=== PATIENT | male | born 1960 | race Caucasian/White ===

== ENCOUNTER 2016-11-07 09:25 | Day surgery (SDC) | payer MEDICAID, OTHER ==
[~2016-11-07 09:25] MED LIST: Lactated Ringers 1,000 ML IV SCH; Lidocaine 1%/Sod Bicarbonate in NS 8.4% 1 ML Syringe IV PRN; Sodium Chloride 0.9% 10 ML Syringe FLUSH PRN
[2016-11-07] MEDS ORDERED: Bupivacaine 0.25% 30 ML SDV ONE (10:00)
[2016-11-07] MEDS ORDERED: Lidocaine 1% 50 ML MDV ONE (10:00)
--- NOTE | 2016-11-07 10:32 | PCM.PREANE ---
Preanesthetic Assessment - Anesthesia/Transfusion/Family Hx Anesthesia History: Prior Anesthesia Without Reaction Type of Anesthesia Reaction: Unknown Family History of Anesthesia Reaction: No Transfusion History: Prior Transfusion Without Reaction (with his broken leg) Type of Transfusion Reactions: Reports: Unknown Intubation History: Unknown - Review of Systems General: No Symptoms Pulmonary: Wheezing Cardiovascular: No Symptoms Gastrointestinal: No symptoms Neurological: No Symptoms Other: Reports: Thyroid Problems (hypothyroid) - Physical Assessment NPO Status Date: 11/07/16 NPO Status Time: 01:00 O2 Sat by Pulse Oximetry: 97 Respiratory Rate: 16 Vital Signs: Last Vital Signs Temp 37.1 C 11/07/16 09:30 Pulse 84 11/07/16 09:30 Resp 16 11/07/16 09:30 BP 135/93 H 11/07/16 09:30 Pulse Ox 97 11/07/16 09:30 Height: 1.65 m Weight: 72.575 kg ASA Class: 2 Mental Status: Alert & Oriented x3 Airway Class: Mallampati = 1 Dentition: Reports: Broken Tooth/Teeth (very poor dentition, most teeth are ground down to nubs including front top teeth ) Thyro-Mental Finger Breadths: 3 Mouth Opening Finger Breadths: 3 ROM/Head Extension: Full Lungs: Normal respiratory effort, Wheezing (pt states he is always a little wheezy) Cardiovascular: Regular Rate, Regular Rhythm - Lab Values: Laboratory Last Values Uric Acid 6.0 mg/dL (3.5-7.2) 11/04/16 07:42 C-Reactive Protein 13.6 mg/dL (<1.0) H* 11/04/16 07:42 MRSA (PCR) Negative 11/05/16 08:52 - Imaging/EKG Impressions: CXR - mild emphysema - Allergies Allergies/Adverse Reactions: Allergies Allergy/AdvReac Type Severity Reaction Status Date / Time No Known Allergies Allergy Verified 11/06/16 14:56 - Blood Blood Available: No Product(s) Available: None - Anesthesia Plan Pre-Op Medication Ordered: None - Acknowledgements Anesthesia Type Planned: MAC Pt an Appropriate Candidate for the Planned Anesthesia: Yes Alternatives and Risks of Anesthesia Discussed w Pt/Guardian: Yes Pt/Guardian Understands and Agrees with Anesthesia Plan: Yes PreAnesthesia Questionnaire HEENT History: Reports: Impaired vision, Other (see below) Other HEENT History: glasses Cardiovascular History: Reports: None Respiratory History: Reports: None Gastrointestinal History: Reports: None Musculoskeletal History: Reports: Other (see below) Other Musculoskeletal History: ac joint bone spurs, L glenohumeral arthritis, R wrist pain with swelling, L shoulder rotator cuff impingement, bilateral carpal syndrome, knee surgery Neurological History: Reports: None Psychiatric History: Reports: None Endocrine/Metabolic History: Reports: Hypothyroidism Hematologic History: Reports: None Immunologic History: Reports: None Oncologic (Cancer) History: Reports: None Dermatologic History: Reports: None - Past Surgical History Head Surgeries/Procedures: Reports: None Other Female Surgeries/Procedures: prostate surgery Male Surgical History: Reports: Other (see below) - SUBSTANCE USE Smoking Status *Q: Current Every Day Smoker (1ppd for 40 years) Tobacco Use Within Last Twelve Months: Cigarettes Second Hand Smoke Exposure: No Recreational Drug Use History: No - HOME MEDS Home Medications: Home Meds Acetaminophen [Tylenol] 650 mg PO Q4H PRN 11/06/16 [History] Hydrocodone/Acetaminophen [[place] 5-325 Tablet] 1 - 2 each PO Q6H PRN #20 tablet 11/07/16 [Rx] - CURRENT (IN HOUSE) MEDS Current Meds: Current Medications Lactated Ringer's (Ringers, Lactated) 1,000 mls @ 125 mls/hr IV ASDIRECTED MONIKA Stop: 11/07/16 23:00 Last Admin: 11/07/16 09:40 Dose: 125 mls/hr Lidocaine/Sodium Bicarbonate (Buffered Lidocaine 1% In Ns 8.4%) 0.25 ml IV ONETIME PRN PRN Reason: Prior to IV Start Stop: 11/07/16 18:00 Last Admin: 11/07/16 09:40 Dose: 0.25 ml Sodium Chloride (Saline Flush) 10 ml FLUSH ASDIRECTED PRN PRN Reason: Keep Vein Open Stop: 11/07/16 18:00 Discontinued Medications Bupivacaine HCl (Marcaine 0.25%) Confirm Administered Dose 30 ml .ROUTE .STK- MED ONE Stop: 11/07/16 10:01 Lidocaine HCl (Xylocaine 1%) Confirm Administered Dose 50 ml .ROUTE .STK-MED ONE Stop: 11/07/16 10:01
[2016-11-07] MEDS ORDERED: Midazolam 1 MG/ML 2 ML SDV ONE (10:49)
[2016-11-07] MEDS ORDERED: fentaNYL 100 MCG/2 ML SDV ONE (10:49)
[2016-11-07] MEDS ORDERED: Propofol 200 MG/20 ML SDV ONE (10:49)
[2016-11-07] MEDS ORDERED: Lidocaine 1% 4 ML ONE (10:52)
[2016-11-07] MEDS ORDERED: ceFAZolin 1 GM Vial ONE (10:52)
[2016-11-07 12:03] VITALS: BP 104/69
--- NOTE | 2016-11-07 12:03 | PCM48HPAN ---
Post Anesthesia Note - EVALUATION WITHIN 48HRS OF ANESTHETIC Vital Signs in Normal Range: Yes Patient Participated in Evaluation: Yes Respiratory Function Stable: Yes Airway Patent: Yes Cardiovascular Function Stable: Yes Hydration Status Stable: Yes Pain Control Satisfactory: Yes Nausea and Vomiting Control Satisfactory: Yes Mental Status Recovered: Yes
--- NOTE | 2016-11-12 11:17 | PCM.OPNOTE ---
- General Post-Op/Procedure Note Date of Surgery/Procedure: 11/07/16 Operative Procedure(s): left hand carpal tunnel release Pre Op Diagnosis: left median nerve compression neuropathy Post-Op Diagnosis: Same Anesthesia Technique: Regional block (zack) Primary Surgeon: Duke Escobedo Anesthesia Provider: Lei Chun Laborer Livestock: Renu Arias in mLs: 5 Complications: None Condition: Good
--- NOTE | 2016-11-12 11:42 | OR ---
DATE OF OPERATION: 11/07/2016 SURGEON: Duke Escobedo MD OPERATION PERFORMED: Left hand carpal tunnel release. PREOPERATIVE DIAGNOSIS: Left median nerve compression neuropathy. POSTOPERATIVE DIAGNOSIS: Left median nerve compression neuropathy. ANESTHESIA: Regional Loco block ANESTHESIA PROVIDER: Lei Chun CRNA LIVE IN HOUSEKEEPER: Renu Arias PA-C ESTIMATED BLOOD LOSS: 5 mL. COMPLICATIONS: None. CONDITION: Stable. DESCRIPTION OF PROCEDURE: The patient was identified in the preop holding area, proper site was marked and identified by the surgeon. The patient was taken back to the operating theater, where after adequate anesthesia the patient's left upper extremity was sterilely prepped and draped in the usual sterile fashion. OR time-out was performed. The patient received 2 g IV Ancef. At this time, incision was made using Carter cardinal line and ulnar border of the 4th digit. This was taken down to the palmar cutaneous fascia. Palmar cutaneous fascia was then incised with a [place] blade. Transverse carpal ligament was identified and a small rent was made in the transverse carpal ligament. A [place] elevator was then placed distally and the transverse carpal ligament was resected down to the palmar arch making sure to stop just short. It was found to be adequately released distally. At this time, attention was turned proximally with the use of tenotomy scissors to forearm fascia and the transverse carpal ligament were resected making sure to keep the tips ulnar to protect the palmar cutaneous branch of the median nerve. It was found to be adequately released both proximally and distally. Adequate saline was irrigated through the wound. A 4-0 nylon was used for closure of the skin. The patient was placed in a sterile soft tissue dressing and tolerated the procedure well. MMODAL /[id number]
== END 2016-11-07 12:32 | disposition home or self-care (01) ==
LOC: JD.SDS 09:25
PROVIDERS: ATTEND Orthopaedic Surgery
PROC: 01N50ZZ Release Median Nerve, Open Approach (ICD-10-PCS; principal; 2016-11-07)
DX: G56.02 Carpal tunnel syndrome, left upper limb (principal); F17.210 Nicotine dependence, cigarettes, uncomplicated; Z98.890 Other specified postprocedural states
CPT/HCPCS: 36415; 64721; 84550; 86140; 87641; J0690; J2250; J3010; J7120; 01810; J2704; J3490

== ENCOUNTER 2016-12-26 06:29 | Day surgery (SDC) | payer MEDICAID ==
[~2016-12-26 06:29] MED LIST changes: -Lidocaine 1%/Sod Bicarbonate in NS 8.4% 1 ML Syringe IV PRN; +Lidocaine 1%/Sod Bicarbonate in NS 8.4% 1 ML Syringe PRN
[2016-12-26] MEDS ORDERED: Lidocaine 1% 30 ML SDV ONE (06:41)
[2016-12-26] MEDS ORDERED: Bupivacaine 0.25% 30 ML SDV ONE (06:41)
--- NOTE | 2016-12-26 06:52 | PCM.PREANE ---
Preanesthetic Assessment - Anesthesia/Transfusion/Family Hx Anesthesia History: Prior Anesthesia Without Reaction Family History of Anesthesia Reaction: No Transfusion History: Prior Transfusion Without Reaction (with his broken leg) Type of Transfusion Reactions: Reports: Unknown Intubation History: Unknown - Review of Systems General: No Symptoms Pulmonary: No Symptoms Cardiovascular: No Symptoms Gastrointestinal: No symptoms Neurological: No Symptoms Other: Reports: None - Physical Assessment NPO Status Date: 12/25/16 NPO Status Time: 00:00 Pulse: 79 O2 Sat by Pulse Oximetry: 98 Respiratory Rate: 16 Blood Pressure: 140/89 Temperature: 36.1 C Height: 1.65 m Weight: 72.575 kg ASA Class: 2 Mental Status: Alert & Oriented x3 Dentition: Reports: Normal Dentition, Missing Tooth/Teeth Thyro-Mental Finger Breadths: 3 Mouth Opening Finger Breadths: 3 ROM/Head Extension: Full Lungs: Clear to auscultation, Normal respiratory effort, Decreased breath sounds Cardiovascular: Regular Rate, Regular Rhythm, No Murmurs - Lab Values: Laboratory Last Values MRSA (PCR) Negative 12/17/16 15:43 - Allergies Allergies/Adverse Reactions: Allergies Allergy/AdvReac Type Severity Reaction Status Date / Time No Known Allergies Allergy Verified 12/25/16 15:07 - Blood Blood Available: No Product(s) Available: None - Anesthesia Plan Pre-Op Medication Ordered: None - Acknowledgements Anesthesia Type Planned: MAC Pt an Appropriate Candidate for the Planned Anesthesia: Yes Alternatives and Risks of Anesthesia Discussed w Pt/Guardian: Yes Pt/Guardian Understands and Agrees with Anesthesia Plan: Yes PreAnesthesia Questionnaire HEENT History: Reports: Impaired Vision, Other (See Below) Other HEENT History: glasses Cardiovascular History: Reports: None Respiratory History: Reports: None, Other (See Below) Other Respiratory History: emphysema Gastrointestinal History: Reports: None NEWSPAPER EDITOR MANAGING History: Reports: None Musculoskeletal History: Reports: Other (See Below) Other Musculoskeletal History: ac joint bone spurs, L glenohumeral arthritis, R wrist pain with swelling, L shoulder rotator cuff impingement, bilateral carpal syndrome, knee surgery Neurological History: Reports: None Psychiatric History: Reports: None Endocrine/Metabolic History: Reports: Hypothyroidism Hematologic History: Reports: None, Other (See Below) Other Hematologic History: increased white blood cells, thrombocytosis Immunologic History: Reports: None Oncologic (Cancer) History: Reports: None Dermatologic History: Reports: None - Past Surgical History Head Surgeries/Procedures: Reports: None GI Surgical History: Reports: Other (See Below) Other GI Surgeries/Procedures: prostate surgery Other Female Surgeries/Procedures: prostate surgery Male Surgical History: Reports: Other (See Below) Musculoskeletal Surgical History: Reports: Other (See Below) Other Musculoskeletal Surgeries/Procedures:: ac joint bone spur, L glenohumeral arthritis, R wrist pain and swelling, Rotator cuff impingement to L shoulder, carpal tunnel syndrome - SUBSTANCE USE Smoking Status *Q: Current Some Day Smoker Tobacco Use Within Last Twelve Months: Cigarettes Second Hand Smoke Exposure: No Days Per Week of Alcohol Use: 0 Number of Drinks Per Day: 0 Total Drinks Per Week: 0 Recreational Drug Use History: No - HOME MEDS Home Medications: Home Meds Acetaminophen [Tylenol] 650 mg PO Q4H PRN 11/06/16 [History] - CURRENT (IN HOUSE) MEDS Current Meds: Current Medications Lactated Ringer's (Ringers, Lactated) 1,000 mls @ 125 mls/hr IV ASDIRECTED MONIKA Stop: 12/26/16 23:00 Lidocaine/Sodium Bicarbonate (Buffered Lidocaine 1% In Ns 8.4%) 0.25 ml .XX ONETIME PRN PRN Reason: Prior to IV Start Stop: 12/26/16 18:00 Sodium Chloride (Saline Flush) 10 ml FLUSH ASDIRECTED PRN PRN Reason: Keep Vein Open Stop: 12/26/16 18:00 Discontinued Medications Fentanyl (Sublimaze) Confirm Administered Dose 100 mcg .ROUTE .STK-MED ONE Stop: 12/26/16 06:55 Midazolam HCl (Versed 1 Mg/Ml) Confirm Administered Dose 2 mg .ROUTE .STK-MED ONE Stop: 12/26/16 06:56 Propofol (Diprivan 20 Ml) Confirm Administered Dose 200 mg .ROUTE .STK-MED ONE Stop: 12/26/16 06:55
[2016-12-26] MEDS ORDERED: Propofol 200 MG/20 ML SDV ONE (06:54)
[2016-12-26] MEDS ORDERED: fentaNYL 100 MCG/2 ML SDV ONE (06:54)
[2016-12-26] MEDS ORDERED: Midazolam 1 MG/ML 2 ML SDV ONE (06:55)
[2016-12-26] MEDS ORDERED: Lidocaine 1% 4 ML ONE (06:57)
[2016-12-26 09:01] VITALS: BP 100/76
--- NOTE | 2016-12-26 22:03 | PCM.OPNOTE ---
- General Post-Op/Procedure Note Date of Surgery/Procedure: 12/26/16 Operative Procedure(s): right carpal tunnel release Pre Op Diagnosis: right median nerve compression neuropathy Post-Op Diagnosis: Same Anesthesia Technique: Local, MAC Primary Surgeon: Duke Escobedo Anesthesia Provider: Vinicio Polk Film Process Operator: Renu Arias EBL in mLs: 5 Complications: None Condition: Good Free Text/Narrative:: Intake & Output 12/26/16 12/26/16 12/26/16 06:59 14:59 22:59 Intake Total 500 Balance 500
--- NOTE | 2016-12-26 22:30 | OR ---
DATE OF OPERATION: 12/26/2016 SURGEON: Duke Escobedo MD OPERATION PERFORMED: Right carpal tunnel release. PREOPERATIVE DIAGNOSIS: Right median nerve compression neuropathy. POSTOPERATIVE DIAGNOSIS: Right median nerve compression neuropathy. ANESTHESIA: Local MAC. ANESTHESIA PROVIDER: Vinicio Polk CRNA. STREET LIGHT SERVICER SUPERVISOR: Renu Arias PA-C. ESTIMATED BLOOD LOSS: Less than 5 mL. COMPLICATIONS: None. CONDITION: Stable. DESCRIPTION OF PROCEDURE: The patient was identified in the preop holding area. Proper site was marked and identified by the surgeon. After adequate anesthesia, the patient's right upper extremity sterilely prepped and draped in the usual sterile fashion. OR time-out was performed. The patient did not receive antibiotics, it was not indicated for soft tissue hand procedure at this time. An Esmarch was used as a tourniquet on the midforearm and 0.25% Marcaine without epinephrine and 1% lidocaine without epinephrine was then used to anesthetize the incisional area using Carter cardinal line in the ulnar border of the fourth digit. Once this had set up, incision was made with a #15 blade. Blunt dissection was taken down to the palmar cutaneous fascia. The palmar cutaneous fascia was identified and a small rent was made in the transverse carpal ligament with a [place] blade. A [place] elevator was then placed distally under the transverse carpal ligament and this was then released all the way down to the palmar arch. Attention was then turned proximally. Tenotomy scissors making sure to keep the tips ulnar was used to release the transverse carpal ligament in forearm fascia proximally. He was found to have adequate release both proximally and distally. At this time, adequate saline was irrigated through the wound. 4-0 nylon simple suture was used for closure of the skin. The patient tolerated the procedure well and sent to PACU in stable condition. MMODAL /[id number]
== END 2016-12-26 08:45 | disposition home or self-care (01) ==
LOC: JD.SDS 06:29
PROVIDERS: ATTEND Orthopaedic Surgery
PROC: 01N50ZZ Release Median Nerve, Open Approach (ICD-10-PCS; principal; 2016-12-26)
DX: G56.01 Carpal tunnel syndrome, right upper limb (principal); D72.829 Elevated white blood cell count, unspecified; D47.3 Essential (hemorrhagic) thrombocythemia; M19.012 Primary osteoarthritis, left shoulder; M75.42 Impingement syndrome of left shoulder; F17.210 Nicotine dependence, cigarettes, uncomplicated; Z86.39 Personal history of other endocrine, nutritional and metabolic disease; Z98.890 Other specified postprocedural states
CPT/HCPCS: 64721; 87641; J2250; J3010; J7120; 01810; J2704; J3490

== ENCOUNTER 2017-03-24 11:00 | Inpatient (IN) | payer MEDICAID, OTHER ==
[2017-04-16] MEDS ORDERED: Lactated Ringers 1,000 ML IV SCH (00:01)
[2017-04-16] MEDS ORDERED: Lidocaine 1%/Sod Bicarbonate in NS 8.4% 1 ML Syringe PRN (00:01)
[2017-04-16] MEDS ORDERED: Sodium Chloride 0.9% 10 ML Syringe FLUSH PRN (00:01)
--- NOTE | 2017-04-16 07:21 | PCM.PREANE ---
Preanesthetic Assessment - Anesthesia/Transfusion/Family Hx Anesthesia History: Prior Anesthesia Without Reaction Family History of Anesthesia Reaction: No Transfusion History: Prior Transfusion Without Reaction (with his broken leg) Type of Transfusion Reactions: Reports: Unknown Intubation History: Unknown - Review of Systems General: No Symptoms Pulmonary: No Symptoms Cardiovascular: No Symptoms Gastrointestinal: No Symptoms Neurological: No Symptoms Other: Reports: None - Physical Assessment NPO Status Date: 04/15/17 NPO Status Time: 00:00 Pulse: 69 O2 Sat by Pulse Oximetry: 98 Respiratory Rate: 16 Blood Pressure: 117/74 Temperature: 36.6 C Height: 1.65 m Weight: 72.575 kg ASA Class: 2 Mental Status: Alert & Oriented x3 Dentition: Reports: Normal Dentition, Broken Tooth/Teeth Thyro-Mental Finger Breadths: 3 Mouth Opening Finger Breadths: 3 ROM/Head Extension: Full Lungs: Clear to Auscultation, Normal Respiratory Effort Cardiovascular: Regular Rate, Regular Rhythm - Lab Values: Laboratory Last Values MRSA (PCR) Negative 04/11/17 08:01 - Imaging/EKG Impressions: on chart - Allergies Allergies/Adverse Reactions: Allergies Allergy/AdvReac Type Severity Reaction Status Date / Time No Known Allergies Allergy Verified 04/15/17 13:27 - Anesthesia Plan Pre-Op Medication Ordered: None - Acknowledgements Anesthesia Type Planned: General Anesthesia, Regional Block (interscalen for post op pain control) Pt an Appropriate Candidate for the Planned Anesthesia: Yes Alternatives and Risks of Anesthesia Discussed w Pt/Guardian: Yes Pt/Guardian Understands and Agrees with Anesthesia Plan: Yes PreAnesthesia Questionnaire HEENT History: Reports: Impaired Vision, Other (See Below) Other HEENT History: glasses Cardiovascular History: Reports: None Respiratory History: Other Respiratory History: emphysema Gastrointestinal History: Reports: None Genitourinary History: Reports: None FISH BAILER History: Reports: None Musculoskeletal History: Reports: Other (See Below) Other Musculoskeletal History: ac joint bone spurs, L glenohumeral arthritis, R wrist pain with swelling, L shoulder rotator cuff impingement, bilateral carpal syndrome, knee surgery Neurological History: Reports: None Psychiatric History: Reports: None Endocrine/Metabolic History: Reports: Hypothyroidism Hematologic History: Other Hematologic History: leukocytosis, thrombocytosis Immunologic History: Reports: None Oncologic (Cancer) History: Reports: None Dermatologic History: Reports: None - Past Surgical History Head Surgeries/Procedures: Reports: None Cardiovascular Surgical History: Reports: None Respiratory Surgical History: Reports: None GI Surgical History: Reports: None, Other (See Below) Female Surgical History: Reports: None Other Female Surgeries/Procedures: prostate surgery Male Surgical History: Reports: Other (See Below) Endocrine Surgical History: Reports: None Neurological Surgical History: Reports: None Musculoskeletal Surgical History: Reports: Other (See Below) Other Musculoskeletal Surgeries/Procedures:: knee surgery Oncologic Surgical History: Reports: None Dermatological Surgical History: Reports: None - SUBSTANCE USE Smoking Status *Q: Former Smoker Tobacco Use Within Last Twelve Months: Cigarettes Second Hand Smoke Exposure: No Days Per Week of Alcohol Use: 0 Number of Drinks Per Day: 0 Total Drinks Per Week: 0 Recreational Drug Use History: No - HOME MEDS Home Medications: Home Meds Acetaminophen [Tylenol] 650 mg PO Q4H PRN 11/06/16 [History] - CURRENT (IN HOUSE) MEDS Current Meds: Current Medications Lactated Ringer's (Ringers, Lactated) 1,000 mls @ 125 mls/hr IV ASDIRECTED MONIKA Stop: 04/16/17 23:00 Lidocaine/Sodium Bicarbonate (Buffered Lidocaine 1% In Ns 8.4%) 0.25 ml .XX ONETIME PRN PRN Reason: Prior to IV Start Stop: 04/16/17 18:00 Sodium Chloride (Saline Flush) 10 ml FLUSH ASDIRECTED PRN PRN Reason: Keep Vein Open Stop: 04/16/17 18:00
[2017-04-16] MEDS ORDERED: EPINEPHrine 1 MG/ML SDV ONE ×2 (07:26→08:37)
[2017-04-16] MEDS ORDERED: Ropivacaine 0.5% 5 MG/ML 30 ML SDV ONE (07:27)
[2017-04-16] MEDS ORDERED: Propofol 200 MG/20 ML SDV ONE (07:35)
[2017-04-16] MEDS ORDERED: fentaNYL 100 MCG/2 ML SDV ONE (07:35)
[2017-04-16] MEDS ORDERED: Rocuronium 50 MG/5 ML Vial ONE (07:35)
[2017-04-16] MEDS ORDERED: Ondansetron 4 MG/2 ML SDV ONE (07:35)
[2017-04-16] MEDS ORDERED: Lidocaine 1% 6 ML ONE (07:36)
[2017-04-16] MEDS ORDERED: Midazolam 1 MG/ML 2 ML SDV ONE (07:36)
[2017-04-16] MEDS ORDERED: Iodine/Sodium Iodide 2% Tincture 30 ML Bottle ONE (07:58)
[2017-04-16] MEDS ORDERED: ceFAZolin 1 GM Vial ONE ×2 (07:58→09:31)
[2017-04-16] MEDS ORDERED: Vancomycin 1 GM SDV ONE (07:58)
--- NOTE | 2017-04-16 09:19 | PCM.SN ---
- Free Text/Narrative Note: Note: 04/16/2017 1033 114/83 64 96% 12 Surgeon and pt request post-op pain control for left shoulder surgery risk of block failure, facial numbness, site infection, and chronic pain discussed with pt and agreed to proceed. All standard monitors est. EKG, BP, Pulse Ox, 2L O2 and 2ml versed, 2ml fentanyl pre-op dx. left shoulder arthroplasty post-op dx left reverse total shoulder pt for interscalene block placement all standard monitors est. pt ID time out performed IV sedation 2ml versed, 2ml fentanyl, 2L NC O2, sterile prep and drape of left neck and shoulder U/S placed with visualization of brachial plexus from clavicle to cricoid local skin infiltration 22ga. Stimplex A insulated needle visualized at brachial plexus nerve stimulator at .9 Marita Amps stop at .4 Marita Amps with good bicep twitch with 1ml NaCl and lose of twitch neg aspirations every 5ml of 0.5% ropivacaine and 1:200,000 epi total of 30ml injected all done with U/S guidance needle withdrawn no complications noted pt tolerated procedure well block settling in start procedure at 0840 end procedure at 0909 116/63 65 96% 15
[2017-04-16] MEDS ORDERED: Morphine 2 MG/ML Syringe IVPUSH PRN (09:54)
[2017-04-16] MEDS ORDERED: Cyclobenzaprine 10 MG Tab PO PRN (09:54)
[2017-04-16] MEDS ORDERED: Docusate Sodium 100 MG Cap PO PRN (09:54)
[2017-04-16] MEDS ORDERED: Ondansetron 4 MG/2 ML SDV IVPUSH PRN (09:54)
[2017-04-16] MEDS ORDERED: Bisacodyl 5 MG Tab PO PRN (09:54)
[2017-04-16] MEDS ORDERED: Naloxone 0.4 MG/ML SDV IVPUSH PRN (09:54)
[2017-04-16] MEDS ORDERED: Magnesium Hydroxide 400 MG/5 ML Susp 30 ML Cup PO PRN (09:54)
[2017-04-16] MEDS ORDERED: Sennosides 8.6 MG Tab PO PRN (09:54)
[2017-04-16] MEDS ORDERED: Lactated Ringers 1,000 ML ONE (10:16)
[2017-04-16] MEDS ORDERED: fentaNYL 250 MCG/5 ML SDV ONE (10:23)
[2017-04-16] MEDS: Bupivacaine 0.25% 30 ML SDV ONE ×2 (11:27→11:37)
[2017-04-16] MEDS ORDERED: Pneumococcal Polyvalent-23 Vaccine 0.5 ML SDV IM ONE (12:00)
[2017-04-16] MEDS ORDERED: FLU Vacc QS 2017-18 (6mos UP)/PF 60 MCG/0.5 ML Syringe IM ONE (12:00)
[2017-04-16] MEDS ORDERED: Diphtheria,Pertussis(Acell),Tetanus Vaccine 0.5 ML SDV IM ONE (12:00)
[2017-04-16] MEDS ORDERED: fentaNYL 100 MCG/2 ML SDV IVPUSH PRN (12:10)
--- NOTE | 2017-04-16 12:12 | PCM.POSTAN ---
POST ANESTHESIA ASSESSMENT - MENTAL STATUS Mental Status: Alert, Oriented - VITAL SIGNS Pulse Rate: 69 SaO2: 97 Resp Rate: 16 Blood Pressure: 134/85 Temperature: 36.9 C - RESPIRATORY Respiratory Status: Respiratory Rate WNL, Airway Patent, O2 Saturation Stable, Supplemental Oxygen - CARDIOVASCULAR CV Status: Pulse Rate WNL, Blood Pressure Stable - GASTROINTESTINAL GI Status: No Symptoms - PAIN Pain Score: 0 - POST OP HYDRATION Hydration Status: Adequate & Stable - OBSERVATIONS Free Text/Narrative:: no anesthesia complications noted
[2017-04-16] MEDS ORDERED: Ketorolac 15 MG/ML SDV IVPUSH PRN (12:15)
[2017-04-16] MEDS: diphenhydrAMINE 50 MG/ML SDV IVPUSH PRN ×2 (12:30→17:09)
[2017-04-16] MEDS ORDERED: LORazepam 2 MG/ML MDV ONE (12:33)
[2017-04-16] MEDS ORDERED: LORazepam 2 MG/ML MDV IVPUSH ONE (12:36)
[2017-04-16] MEDS: Famotidine 20 MG Tab PO SCH ×2 (15:20→21:36)
--- NOTE | 2017-04-16 15:22 | CR ---
Left shoulder: Single AP view of the left shoulder was obtained. Comparison: Previous operative study, no earlier exam. Left shoulder prosthesis is seen. Components are aligned. Soft tissue air noted. Underlying bony structures appear intact. Impression: 1. Recently placed left shoulder prosthesis. No radiographic complications are seen. Diagnostic code #2
--- NOTE | 2017-04-16 15:45 | CR ---
Left shoulder: Three fluoroscopic spot views were obtained during left shoulder prosthesis placement utilizing C-arm device. Study shows placement of a reverse left shoulder prosthesis. Fluoroscopy time given as 2.6 seconds. Impression: 1. Findings as noted above. Diagnostic code #2
--- NOTE | 2017-04-16 16:01 | PCM.CONS ---
H&P History of Present Illness - General Date of Service: 04/16/17 Admit Problem/Dx: Admission Diagnosis/Problem Admission Diagnosis/Problem Osteoarthritis of shoulder - History of Present Illness Initial Comments - Free Text/Narative: Rony Avery is a 57 yo male pt. of Dr. Escobedo who was admitted following a left reverse total shoulder arthroplasty. He is post-op day 0. Hospitalist team was consulted for medical management. He is resting comfortably at this time. He denies any nausea, vomiting, chest pain, shortness of breath, or palpitations. He is having some moderate puritis to his left shoulder and wrist. Nursing notes Benadryl is ordered by the primary team and she is going to administer this as soon as another IV is established, as his IV is not flushing. He carries a hx/o leukocytosis, thrombocytosis, left glenohumeral arthritis, emphysema, hypothyroidism, and prostate surgery. He is a former smoker. He is a full code. His PCP is Daryl Rowland PA-C here at [facility]. Left Shoulder Pain Score (Numeric/FACES): 0 - Related Data Allergies/Adverse Reactions: Allergies Allergy/AdvReac Type Severity Reaction Status Date / Time No Known Allergies Allergy Verified 04/15/17 13:27 Home Medications: Home Meds Acetaminophen [Tylenol] 650 mg PO Q4H PRN 11/06/16 [History] Past Medical History HEENT History: Reports: Impaired Vision, Other (See Below) Other HEENT History: glasses Cardiovascular History: Reports: None Respiratory History: Other Respiratory History: emphysema Gastrointestinal History: Reports: None Genitourinary History: Reports: None [employer] MECH[employer]IC History: Reports: None Musculoskeletal History: Reports: Other (See Below) Other Musculoskeletal History: ac joint bone spurs, L glenohumeral arthritis, R wrist pain with swelling, L shoulder rotator cuff impingement, bilateral carpal syndrome, knee surgery Neurological History: Reports: None Psychiatric History: Reports: None Endocrine/Metabolic History: Reports: Hypothyroidism Hematologic History: Other Hematologic History: leukocytosis, thrombocytosis Immunologic History: Reports: None Oncologic (Cancer) History: Reports: None Dermatologic History: Reports: None - Past Surgical History Head Surgeries/Procedures: Reports: None Cardiovascular Surgical History: Reports: None Respiratory Surgical History: Reports: None GI Surgical History: Reports: None, Other (See Below) Female Surgical History: Reports: None Other Female Surgeries/Procedures: prostate surgery Male Surgical History: Reports: Other (See Below) Endocrine Surgical History: Reports: None Neurological Surgical History: Reports: None Musculoskeletal Surgical History: Reports: Other (See Below) Other Musculoskeletal Surgeries/Procedures:: knee surgery Oncologic Surgical History: Reports: None Dermatological Surgical History: Reports: None Social & Family History - Tobacco Use Smoking Status *Q: Former Smoker Years of Tobacco use: 40 Packs/Tins Daily: 0.2 Used Tobacco, but Quit: Yes Month Tobacco Last Used: March Second Hand Smoke Exposure: No - Caffeine Use Caffeine Use: Reports: Coffee - Alcohol Use Days Per Week of Alcohol Use: 0 Number of Drinks Per Day: 0 Total Drinks Per Week: 0 - Recreational Drug Use Recreational Drug Use: No Drug Use in Last 12 Months: No H&P Review of Systems - Review of Systems: Review Of Systems: See Below General: Reports: No Symptoms. Denies: Fever, Chills, Malaise, Weakness, Fatigue HEENT: Reports: No Symptoms. Denies: Headaches, Hearing Changes, Sinus Congestion, Vertigo, Visual Changes Pulmonary: Reports: No Symptoms. Denies: Shortness of Breath, Wheezing, Pleuritic Chest Pain, Cough, Sputum Cardiovascular: Reports: No Symptoms. Denies: Chest Pain, Palpitations, Dyspnea on Exertion, Orthopnea, Edema Gastrointestinal: Reports: No Symptoms. Denies: Abdominal Pain, Anorexia, Black Stool, Constipation, Diarrhea, Nausea, Vomiting Genitourinary: Reports: No Symptoms. Denies: Dysuria, Frequency, Burning, Pain , Urgency Musculoskeletal: Reports: No Symptoms. Denies: Neck Pain, Shoulder Pain, Arm Pain, Back Pain, Joint Swelling Skin: Reports: Pruritis (Left shoulder and arm). Denies: Cyanosis, Jaundice, Mottled Psychiatric: Reports: No Symptoms. Denies: Confusion, Depression, Mood Lability , Anxiety Neurological: Reports: No Symptoms. Denies: Confusion, Dizziness, Headache, Numbness, Paresthesia, Trouble Speaking, Difficulty Walking, Change in Speech, Gait Disturbance Hematologic/Lymphatic: Reports: No Symptoms Immunologic: Reports: No Symptoms Exam - Exam Exam: See Below - Vital Signs Vital Signs: Last Vital Signs Temp 97.2 F 04/16/17 14:12 Pulse 88 04/16/17 14:38 Resp 19 04/16/17 14:12 BP 109/74 04/16/17 14:30 Pulse Ox 97 04/16/17 14:38 Weight: 160 lb - Exam Quality Assessment: DVT Prophylaxis. No: Urinary Catheter General: Alert, Oriented, Cooperative HEENT: Conjunctiva Clear, Hearing Intact, Mucosa Moist & [place], Nares Patent, Normal Nasal Septum, Posterior Pharynx Clear, Pupils Equal, Pupils Reactive Neck: Supple, Trachea Midline. No: JVD Lungs: Clear to Auscultation Cardiovascular: Regular Rate, Regular Rhythm GI/Abdominal Exam: Normal Bowel Sounds, Soft, Non-Tender, No Organomegaly, No Distention, No Abnormal Bruit, No Mass, Pelvis Stable (Male) Exam: Deferred Rectal (Males) Exam: Deferred Back Exam: Normal Inspection, Full Range of Motion, Other (mild bruising near left shoulder. Bandage in place ) Extremities: Normal Inspection, Normal Range of Motion, Non-Tender, No Pedal Edema, Normal Capillary Refill, Other (Left shoulder in sling and swathe) Peripheral Pulses: 2+: Radial (L), Radial (R), Posterior Tibial (L), Posterior Tibial (R), Dorsalis Pedis (L), Dorsalis Pedis (R) Skin: Warm, Dry, Intact Neurological: Cranial Nerves Intact Neuro Extensive - Mental Status: Alert, Oriented x3, Normal Mood/Affect, Normal Cognition, Memory Intact Neuro Extensive - Motor, Sensory, Reflexes: CN II-XII Intact (grossly ) Psychiatric: Alert, Normal Affect, Normal Mood Physical Exam Comments:: Patient examined while sitting in bed. He reports no pain at this time, however he is pruritic to his left arm as mentioned in the history of present illness. No concerns noted this time. We'll continue to monitor. Consult PN Assessment/Plan POD#: 0 Procedures: Procedures ASSAY OF BLOOD/URIC ACID (11/07/16) ASSAY OF ERYTHROPOIETIN (12/16/16) ASSAY OF FERRITIN (12/16/16) ASSAY OF IRON (12/16/16) ASSAY OF PREALBUMIN (03/27/17) ASSAY OF SERUM ALBUMIN (03/27/17) ASSAY OF TRANSFERRIN (12/16/16) AUTOMATED RETICULOCYTE COUNT (12/25/16) BL SMEAR W/DIFF WBC COUNT (12/25/16) C-REACTIVE PROTEIN (03/27/17) CARPAL TUNNEL SURGERY (12/26/16) CHEST X-RAY 2VW FRONTAL&LATL (12/17/16) COMPLETE CBC AUTOMATED (12/25/16) COMPLETE CBC W/AUTO DIFF WBC (03/27/17) COMPREHEN METABOLIC PANEL (12/16/16) METABOLIC PANEL TOTAL CA (03/27/17) MR-STAPH DNA AMP PROBE (03/11/17) PROTHROMBIN TIME (03/31/17) ROUTINE VENIPUNCTURE (03/27/17) THROMBOPLASTIN TIME PARTIAL (03/31/17) URINALYSIS AUTO W/O SCOPE (10/30/16) X-RAY EXAM OF WRIST (10/21/16) (1) Status post reverse arthroplasty of left shoulder SNOMED Code(s): 346236521 Code(s): Z96.612 - PRESENCE OF LEFT ARTIFICIAL SHOULDER JOINT Priority: High Current Visit: Yes (2) Emphysema of lung SNOMED Code(s): 15354355 Code(s): J43.9 - EMPHYSEMA, UNSPECIFIED Priority: Medium Current Visit: Yes Qualifiers: Emphysema type: unspecified Qualified Code(s): J43.9 - Emphysema, unspecified (3) Hypothyroidism SNOMED Code(s): 50621244 Code(s): E03.9 - HYPOTHYROIDISM, UNSPECIFIED Current Visit: Yes Qualifiers: Hypothyroidism type: unspecified Qualified Code(s): E03.9 - Hypothyroidism , unspecified (4) Leukocytosis SNOMED Code(s): 869584886 Code(s): D72.829 - ELEVATED WHITE BLOOD CELL COUNT, UNSPECIFIED Priority: Low Current Visit: Yes Qualifiers: Leukocytosis type: unspecified Qualified Code(s): D72.829 - Elevated white blood cell count, unspecified (5) Thrombocytosis SNOMED Code(s): 0031380 Code(s): D47.3 - ESSENTIAL (HEMORRHAGIC) THROMBOCYTHEMIA Priority: Low Current Visit: Yes (6) Osteoarthritis of left glenohumeral joint SNOMED Code(s): 257081438 Code(s): M19.012 - PRIMARY OSTEOARTHRITIS, LEFT SHOULDER Priority: High Current Visit: Yes Problem List Initiated/Reviewed/Updated: Yes Plan: I/P: Acute: S/P left reverse total shoulder arthroplasty - Post-op day 0 -Pain management per primary care team -PT/OT -IS -Vital signs stable at this time -He appears hemodynamically stable at this time -AM labs hx/o glenohumeral arthritis -Pain management per primary care team Chronic: Emphysema Hypothyroidism Leukocytosis Thrombocytosis Plan: CM/SW for discharge planning Other orders as indicated above GI prophylaxis DVT/PT prophylaxis per primary care team 02 as directed for low oxygen saturations He is a full code. His PCP is Daryl Rowland PA-C here at [facility]. Thank you for allowing us to participate in the management of this patient! Requesting Provider: Dr. Escobedo Date Consult Requested: 04/16/17 Reason for Consult: Medical management post-op Patient History Reviewed: Yes Admission H&P Reviewed: Yes
[2017-04-16] MEDS: ceFAZolin 2 GM in Premix Bag 1 BAG IV SCH (18:02)
[2017-04-16] MEDS: Acetaminophen/oxyCODONE 325-5 MG Tab PO PRN ×2 (18:07→22:07)
[2017-04-17] MEDS: ceFAZolin 2 GM in Premix Bag 1 BAG IV SCH ×2 (01:01→09:35)
[2017-04-17] MEDS: Acetaminophen/oxyCODONE 325-5 MG Tab PO PRN ×2 (03:30→09:35)
--- NOTE | 2017-04-17 08:14 | PCM.SURGPN ---
- General Info Date of Service: 04/17/17 POD#: 1 Functional Status: Reports: Pain Controlled, Tolerating Diet, Ambulating, Urinating, Incentive Spirometry. Denies: Other (The pt feels prepared for discharge to home.) - Patient Data Vitals - Most Recent: Last Vital Signs Temp 98.1 F 04/17/17 03:48 Pulse 71 04/17/17 03:48 Resp 18 04/17/17 03:48 BP 112/78 04/17/17 03:48 Pulse Ox 97 04/17/17 03:48 Weight - Most Recent: 184 lb 14.4 oz I&O - Last 24 Hours: Intake & Output 04/16/17 04/17/17 04/17/17 22:59 06:59 14:59 Intake Total 1979 968 Output Total 950 Balance 1979 Lab Results Last 24 Hrs: Laboratory Results - last 24 hr 04/17/17 04/17/17 Range/Units 06:00 06:00 WBC 11.51 H (4.23-9.07) K/mm3 RBC 4.33 L (4.63-6.08) M/mm3 Hgb 13.0 L (13.7-17.5) gm/L Hct 40.3 (40.1-51.0) % MCV 93.1 H (79.0-92.2) fl MCH 30.0 (25.7-32.2) pg MCHC 32.3 (32.2-35.5) g/dl RDW Std Deviation 54.2 H (35.1-43.9) fL Plt Count 216 (163-337) K/mm3 MPV 9.9 (9.4-12.3) fl Neut % (Auto) 72.3 H (34.0-67.9) % Lymph % (Auto) 14.8 L (21.8-53.1) % [place] % (Auto) 12.1 (5.3-12.2) % Eos % (Auto) 0.6 L (0.8-7.0) Baso % (Auto) 0.1 (0.1-1.2) % Neut # (Auto) 8.33 H (1.78-5.38) K/mm3 Lymph # (Auto) 1.70 (1.32-3.57) K/mm3 [place] # (Auto) 1.39 H (0.30-0.82) K/mm3 Eos # (Auto) 0.07 (0.04-0.54) K/mm3 Baso # (Auto) 0.01 (0.01-0.08) K/mm3 Sodium 140 (136-145) mEq/L Potassium 3.8 (3.5-5.1) mEq/L Chloride 105 (98-107) mEq/L Carbon Dioxide 23 (21-32) mEq/L Anion Gap 15.8 H (5-15) BUN 13 (7-18) mg/dL Creatinine 1.1 (0.7-1.3) mg/dL Est Cr Clr Drug Dosing 62.90 mL/min Estimated GFR (MDRD) > 60 (>60) mL/min BUN/Creatinine Ratio 11.8 L (14-18) Glucose 101 (74-106) mg/dL Calcium 8.3 L (8.5-10.1) mg/dL Total Bilirubin 0.5 (0.2-1.0) mg/dL AST 12 L (15-37) U/L ALT 15 L (16-63) U/L Alkaline Phosphatase 98 (46-116) U/L Total Protein 6.3 L (6.4-8.2) g/dl Albumin 3.0 L (3.4-5.0) g/dl Globulin 3.3 gm/dL Albumin/Globulin Ratio 0.9 L (1-2) Med Orders - Current: Current Medications Aspirin (Ecotrin) 325 mg PO DAILY MONIKA Bisacodyl (Dulcolax) 5 mg PO DAILY PRN PRN Reason: Constipation Cyclobenzaprine HCl (Flexeril) 10 mg PO TID PRN PRN Reason: Spasms Diphenhydramine HCl (Benadryl) 25 mg IVPUSH Q4H PRN PRN Reason: Nausea Last Admin: 04/16/17 17:09 Dose: 25 mg Docusate Sodium (Colace) 100 mg PO BID PRN PRN Reason: Constipation Famotidine (Pepcid) 20 mg PO Q12H [facility] Last Admin: 04/16/17 21:36 Dose: 20 mg Cefazolin Sodium/Dextrose 2 gm (/ Premix) 50 mls @ 100 mls/hr IV Q8H [facility] Stop: 04/17/17 09:29 Last Admin: 04/17/17 01:01 Dose: 100 mls/hr Ketorolac Tromethamine (Toradol) 15 mg IVPUSH Q6H PRN PRN Reason: Pain Magnesium Hydroxide (Milk Of Magnesia) 30 ml PO BID PRN PRN Reason: Constipation Morphine Sulfate (Morphine) 2 mg IVPUSH Q2H PRN PRN Reason: Breakthrough Pain Naloxone HCl (Narcan) 0.1 mg IVPUSH Q5M PRN PRN Reason: Oversedation Ondansetron HCl (Zofran) 4 mg IVPUSH Q6H PRN PRN Reason: Nausea/Vomiting Oxycodone/Acetaminophen (Percocet 325-5 Mg) 1 - 2 tab PO Q4H PRN PRN Reason: Pain Last Admin: 04/17/17 03:30 Dose: 2 tab Senna (Senna) 8.6 mg PO BID PRN PRN Reason: Constipation Discontinued Medications Bupivacaine HCl (Marcaine 0.25%) Confirm Administered Dose 30 ml .ROUTE .STK- MED ONE Stop: 04/16/17 08:00 Last Admin: 04/16/17 11:37 Dose: 20 ml Cefazolin Sodium (Ancef) Confirm Administered Dose 2 gm .ROUTE .STK-MED ONE Stop: 04/16/17 07:59 Last Admin: 04/16/17 11:21 Dose: 2 gm Cefazolin Sodium (Ancef) Confirm Administered Dose 2 gm .ROUTE .STK-MED ONE Stop: 04/16/17 09:32 Diphtheria/Tetanus/Acell Pertussis (Adacel) 0.5 ml IM .ONCE ONE Stop: 04/16/17 12:01 Epinephrine HCl (Adrenalin 1:1000) Confirm Administered Dose 1 mg .ROUTE .STK- MED ONE Stop: 04/16/17 07:27 Epinephrine HCl (Adrenalin 1:1000) Confirm Administered Dose 1 mg .ROUTE .STK- MED ONE Stop: 04/16/17 08:38 Fentanyl (Sublimaze) Confirm Administered Dose 100 mcg .ROUTE .STK-MED ONE Stop: 04/16/17 07:36 Fentanyl (Sublimaze) Confirm Administered Dose 250 mcg .ROUTE .STK-MED ONE Stop: 04/16/17 10:24 Fentanyl (Sublimaze) 50 mcg IVPUSH Q5M PRN PRN Reason: PAIN Stop: 04/16/17 15:00 Lactated Ringer's (Ringers, Lactated) 1,000 mls @ 125 mls/hr IV ASDIRECTED MONIKA Stop: 04/16/17 23:00 Last Admin: 04/16/17 07:20 Dose: 125 mls/hr Lidocaine HCl (Xylocaine-Mpf 1%) Confirm Administered Dose 6 mls @ as directed .ROUTE .STK-MED ONE Stop: 04/16/17 07:37 Lactated Ringer's (Ringers, Lactated) Confirm Administered Dose 1,000 mls @ as directed .ROUTE .STK-MED ONE Stop: 04/16/17 10:17 Influenza Virus Vaccine (Pharmacy To Dose - Influenza Vaccine) 1 each IM ONETIME ONE Stop: 04/16/17 09:04 Influenza Virus Vaccine (Flulaval Quad [id number]) 60 mcg IM .ONCE ONE Stop: 04/16/17 12:01 Iodine (Iodine 2% Mild Tincture) Confirm Administered Dose 30 ml .ROUTE .STK- MED ONE Stop: 04/16/17 07:59 Last Admin: 04/16/17 11:19 Dose: 18 ml Lidocaine/Sodium Bicarbonate (Buffered Lidocaine 1% In Ns 8.4%) 0.25 ml .XX ONETIME PRN PRN Reason: Prior to IV Start Stop: 04/16/17 18:00 Last Admin: 04/16/17 07:19 Dose: 0.25 ml Lorazepam (Ativan) 0.5 mg IVPUSH ONETIME ONE Stop: 04/16/17 12:37 Last Admin: 04/16/17 12:38 Dose: 0.5 mg Lorazepam (Ativan) Confirm Administered Dose 2 mg .ROUTE .STK-MED ONE Stop: 04/16/17 12:34 Midazolam HCl (Versed 1 Mg/Ml) Confirm Administered Dose 2 mg .ROUTE .STK-MED ONE Stop: 04/16/17 07:37 Ondansetron HCl (Zofran) Confirm Administered Dose 4 mg .ROUTE .STK-MED ONE Stop: 04/16/17 07:36 Pneumococcal Polyvalent Vaccine (Pneumovax 23) 0.5 ml IM .ONCE ONE Stop: 04/16/17 12:01 Propofol (Diprivan 20 Ml) Confirm Administered Dose 200 mg .ROUTE .STK-MED ONE Stop: 04/16/17 07:36 Rocuronium [place] (Zemuron) Confirm Administered Dose 50 mg .ROUTE .STK-MED ONE Stop: 04/16/17 07:36 Ropivacaine (Naropin 0.5%) Confirm Administered Dose 30 ml .ROUTE .STK-MED ONE Stop: 04/16/17 07:28 Sodium Chloride (Saline Flush) 10 ml FLUSH ASDIRECTED PRN PRN Reason: Keep Vein Open Stop: 04/16/17 18:00 Tranexamic Acid (Cyklokapron) Confirm Administered Dose 1,000 mg .ROUTE .STK- MED ONE Stop: 04/16/17 07:59 Last Admin: 04/16/17 11:29 Dose: 1,000 mg Vancomycin HCl (Vancomycin) Confirm Administered Dose 1 gm .ROUTE .STK-MED ONE Stop: 04/16/17 07:59 Last Admin: 04/16/17 11:31 Dose: 1 gm - Exam Wound/Incisions: Dressing Dry and Intact General: Alert, Cooperative, No Acute Distress Lungs: Normal Respiratory Effort Extremities: Other (NVS intact for BUE. Active elbow, wrist, hand motion noted. ) - Problem List Review Problem List Initiated/Reviewed/Updated: Yes - My Orders Last 24 Hours: Active Orders 24 hr Category Date Time Status Patient Status [ADT] Routine ADT 04/16/17 09:54 Active Ambulate [RC] [facility] Care 04/16/17 09:54 Active Antiembolic Devices [RC] QSHIFT Care 04/16/17 09:57 Active May Shower [RC] ASDIRECTED Care 04/16/17 09:54 Active Notify Provider Consults [RC] ASDIRECTED Care 04/16/17 09:58 Active Notify Provider [RC] ASDIRECTED Care 04/16/17 12:10 Active Oxygen Therapy [RC] PRN Care 04/16/17 09:54 Active Pulse Oximetry [RC] ASDIRECTED Care 04/16/17 12:10 Active RT Incentive Spirometry [RC] Q1HWA Care 04/16/17 09:55 Active Ready for Discharge [RC] PER UNIT ROUTINE Care 04/17/17 08:12 Ordered Up to Chair [RC] TIEALS Care 04/16/17 09:54 Active Urinary Catheter Removal [RC] Per Unit Routine Care 04/16/17 09:54 Inactive Vaccines to be Administered [RC] 1100 Care 04/16/17 09:03 Active Vital Signs [RC] Q15M Care 04/16/17 12:10 Inactive Vital Signs [RC] Q4HR Care 04/16/17 09:54 Active Consult to Physician [CONS] Routine Cons 04/16/17 09:54 Active OT Evaluation and Treatment [CONS] Routine Cons 04/16/17 09:54 Active PT Evaluation and Treatment [CONS] Routine Cons 04/16/17 09:58 Active Regular Diet [DIET] Diet 04/16/17 Lunch Active Acetaminophen/oxyCODONE [Percocet 325-5 MG] Med 04/16/17 09:54 Active 1 - 2 tab PO Q4H PRN Aspirin [Ecotrin] Med 04/17/17 09:00 Active 325 mg PO DAILY Bisacodyl [Dulcolax] Med 04/16/17 09:54 Active 5 mg PO DAILY PRN Cyclobenzaprine [Flexeril] Med 04/16/17 09:54 Active 10 mg PO TID PRN Docusate Sodium [Colace] Med 04/16/17 09:54 Active 100 mg PO BID PRN Famotidine [Pepcid] Med 04/16/17 10:00 Active 20 mg PO Q12H Ketorolac [Toradol] Med 04/16/17 12:15 Active 15 mg IVPUSH Q6H PRN Magnesium Hydroxide [Milk of Magnesia] Med 04/16/17 09:54 Active 30 ml PO BID PRN Morphine Med 04/16/17 09:54 Active 2 mg IVPUSH Q2H PRN Naloxone [Narcan] Med 04/16/17 09:54 Active 0.1 mg IVPUSH Q5M PRN Ondansetron [Zofran] Med 04/16/17 09:54 Active 4 mg IVPUSH Q6H PRN Sennosides [Senna] Med 04/16/17 09:54 Active 8.6 mg PO BID PRN ceFAZolin [Ancef] 2 gm Med 04/16/17 17:00 Active Premix Bag 1 bag IV Q8H diphenhydrAMINE [Benadryl] Med 04/16/17 09:54 Active 25 mg IVPUSH Q4H PRN Antiembolic Hose [OM.PC] Per Unit Routine Oth 04/16/17 09:57 Ordered Ice Therapy [OM.PC] Per Unit Routine Oth 04/16/17 09:55 Ordered Resuscitation Status Routine Resus Stat 04/16/17 09:54 Ordered Medication Orders Aspirin (Ecotrin) 325 mg PO DAILY MONIKA Bisacodyl (Dulcolax) 5 mg PO DAILY PRN PRN Reason: Constipation Cyclobenzaprine HCl (Flexeril) 10 mg PO TID PRN PRN Reason: Spasms Diphenhydramine HCl (Benadryl) 25 mg IVPUSH Q4H PRN PRN Reason: Nausea Last Admin: 04/16/17 17:09 Dose: 25 mg Admin: 04/16/17 12:30 Dose: 25 mg Docusate Sodium (Colace) 100 mg PO BID PRN PRN Reason: Constipation Famotidine (Pepcid) 20 mg PO Q12H [facility] Last Admin: 04/16/17 21:36 Dose: 20 mg Admin: 04/16/17 15:20 Dose: Not Given Cefazolin Sodium/Dextrose 2 gm (/ Premix) 50 mls @ 100 mls/hr IV Q8H [facility] Stop: 04/17/17 09:29 Last Admin: 04/17/17 01:01 Dose: 100 mls/hr Infusion: 04/16/17 18:32 Dose: 100 mls/hr Admin: 04/16/17 18:02 Dose: 100 mls/hr Ketorolac Tromethamine (Toradol) 15 mg IVPUSH Q6H PRN PRN Reason: Pain Magnesium Hydroxide (Milk Of Magnesia) 30 ml PO BID PRN PRN Reason: Constipation Morphine Sulfate (Morphine) 2 mg IVPUSH Q2H PRN PRN Reason: Breakthrough Pain Naloxone HCl (Narcan) 0.1 mg IVPUSH Q5M PRN PRN Reason: Oversedation Ondansetron HCl (Zofran) 4 mg IVPUSH Q6H PRN PRN Reason: Nausea/Vomiting Oxycodone/Acetaminophen (Percocet 325-5 Mg) 1 - 2 tab PO Q4H PRN PRN Reason: Pain Last Admin: 04/17/17 03:30 Dose: 2 tab Admin: 04/16/17 22:07 Dose: 2 tab Admin: 04/16/17 18:07 Dose: 2 tab Senna (Senna) 8.6 mg PO BID PRN PRN Reason: Constipation - Assessment Assessment (Free Text/Narrative):: POD#1 - left reverse total shoulder arthroplasty - Plan Plan (Free Text/Narrative):: 1. Discharge to home today. 2. 325mg ASA daily, frequent mobility, TEDs. 3. Percocet and Flexeril for pain management. 4. f/u at Clinic next week. 5. Outpatient therapy. The pt's case was discussed with Dr. Escobedo.
[2017-04-17] MEDS ORDERED: Aspirin 325 MG Tab.EC PO SCH (09:00)
[2017-04-17 09:12] VITALS: BP 118/73
[2017-04-17] MEDS: Famotidine 20 MG Tab PO SCH (09:36)
--- NOTE | 2017-04-17 11:35 | PCM.DCSUM1 ---
Discharge Summary - Hospital Course Brief History: Rony is a 57 yo male who underwent left reverse total shoulder arthroplasty with Dr. Escobedo on 04-16-2017. The procedure was completed under general anesthesia with regional anesthesia. The pt tolerated the procedure well and was admitted to the Medical-Surgical Unit. Medical management was provided by the Hospitalist service. The pt's Hospital course was uneventful. The pt's Hgb on POD#1 was 13.0. On POD#1, 325mg Aspirin daily was initiated for VTE prophylaxis. SCDs and TEDs were also ordered. A Mepilex dressing was placed at the incision site at the time of surgery and remained clean and dry. The pt participated in P.T. and O.T. and progressed well. Reverse total shoulder athroplasty protocol was followed. On POD#1, the pt was deemed appropriate to discharge to home with his family. - Discharge Data Discharge Date: 04/17/17 Discharge Disposition: Home, Self-Care 01 Condition: Good - Patient Summary/Data Consults: Consultations 04/16/17 09:54 Consult to Physician [CONS] Routine OT Evaluation and Treatment [CONS] Routine 04/16/17 09:58 PT Evaluation and Treatment [CONS] Routine - Patient Instructions Diet: Usual Diet as Tolerated Activity: Apply Ice, As Tolerated, Elevate Extremity Activity, Other: No forceful use of left arm. Driving: Do Not Drive Showering/Bathing: May Shower Wound/Incision Care: Keep Operative Site/Wound Site Clean and Dry, Do NOT Change Dressing Notify Provider of: Fever, Increased Pain, Swelling and Redness, Drainage, Nausea and/or Vomiting Other/Special Instructions: Please get up and moving around every hour while awake. This helps to prevent blood clots. Please take 325mg aspirin daily - this also helps to prevent blood clots. The medication is being used for blood clot prevention and not for pain control, so please use the medication daily as directed. Please wear the ELIZABETH hose during the day and you may remove them at night. Please schedule for physical or occupational therapy. Complete the therapy exercises and stretches that were instructed in the Hospital. Please use the pain medication and muscle relaxant as needed. The medication may cause drowsiness and/or constipation. You could use a stool softener like docusate sodium or Colace 100mg twice daily and/or a laxative like polyethylene glycol or Miralax daily for constipation. Contact your primary care provider for further instructions if you are constipated. Please schedule an appointment with your primary care provider for 'routine post-op care'. Use the incentive spirometer often. Please place ice to the shoulder often. Please elevate the limb to decrease swelling. Keep the Mepilex dressing in place until follow-up. Please call [phone] with questions or concerns. - Discharge Plan Prescriptions/Med Rec: Acetaminophen/oxyCODONE [Percocet 325-5 MG] 1 - 2 tab PO Q4H PRN #60 tablet PRN Reason: Pain Aspirin [Ecotrin] 325 mg PO DAILY #40 tab.ec Cyclobenzaprine [Flexeril] 10 mg PO TID PRN #40 tablet PRN Reason: Spasms Docusate Sodium [Colace] 100 mg PO BID PRN #100 cap PRN Reason: Constipation Famotidine [Pepcid] 20 mg PO Q12H #100 tablet Magnesium Hydroxide [Milk of Magnesia] 30 ml PO BID PRN #1 cup PRN Reason: Constipation Sennosides [Senna] 8.6 mg PO BID PRN #1 tablet PRN Reason: Constipation Home Medications: Home Meds Acetaminophen [Tylenol] 650 mg PO Q4H PRN #0 04/17/17 [Rx] Acetaminophen/oxyCODONE [Percocet 325-5 MG] 1 - 2 tab PO Q4H PRN #60 tablet 06/22 [Rx] Aspirin [Ecotrin] 325 mg PO DAILY #40 tab.ec 04/17/17 [Rx] Bisacodyl [Dulcolax] 5 mg PO DAILY PRN #40 tablet 04/17/17 [Rx] Cyclobenzaprine [Flexeril] 10 mg PO TID PRN #40 tablet 04/17/17 [Rx] Docusate Sodium [Colace] 100 mg PO BID PRN #100 cap 04/17/17 [Rx] Famotidine [Pepcid] 20 mg PO Q12H #100 tablet 04/17/17 [Rx] Magnesium Hydroxide [Milk of Magnesia] 30 ml PO BID PRN #1 cup 04/17/17 [Rx] Sennosides [Senna] 8.6 mg PO BID PRN #1 tablet 04/17/17 [Rx] Patient Handouts: Shoulder Joint Replacement, Shoulder Joint Replacement, Care After, Aspirin, ASA oral tablets Referrals: Daryl Rowland PA-C [Primary Care Provider] - 04/24/17 11:00 am (Please checkin at 10:45 AM.) Renu Arias PA-C [Physician [employer] Loan Originator] - (1. Appointment with Renu Arias PA-C on 04/25/17 at 10:00am. Please check-in at 9:45am. 2. Appointment with Renu Arias PA-C on 05/02/17 at 10:00am. Please check-in at 9:45am.) - Patient Data Vitals - Most Recent: Last Vital Signs Temp 99.3 F 04/17/17 08:22 Pulse 71 04/17/17 03:48 Resp 19 04/17/17 08:22 BP 118/73 04/17/17 08:22 Pulse Ox 97 04/17/17 03:48 Weight - Most Recent: 184 lb 14.4 oz I&O - Last 24 hours: Intake & Output 04/16/17 04/17/17 04/17/17 22:59 06:59 14:59 Intake Total 2400 968 540 Output Total 950 Balance 2400 18 540 Lab Results - Last 24 hrs: Laboratory Results - last 24 hr 04/17/17 04/17/17 Range/Units 06:00 06:00 WBC 11.51 H (4.23-9.07) K/mm3 RBC 4.33 L (4.63-6.08) M/mm3 Hgb 13.0 L (13.7-17.5) gm/L Hct 40.3 (40.1-51.0) % MCV 93.1 H (79.0-92.2) fl MCH 30.0 (25.7-32.2) pg MCHC 32.3 (32.2-35.5) g/dl RDW Std Deviation 54.2 H (35.1-43.9) fL Plt Count 216 (163-337) K/mm3 MPV 9.9 (9.4-12.3) fl Neut % (Auto) 72.3 H (34.0-67.9) % Lymph % (Auto) 14.8 L (21.8-53.1) % [place] % (Auto) 12.1 (5.3-12.2) % Eos % (Auto) 0.6 L (0.8-7.0) Baso % (Auto) 0.1 (0.1-1.2) % Neut # (Auto) 8.33 H (1.78-5.38) K/mm3 Lymph # (Auto) 1.70 (1.32-3.57) K/mm3 [place] # (Auto) 1.39 H (0.30-0.82) K/mm3 Eos # (Auto) 0.07 (0.04-0.54) K/mm3 Baso # (Auto) 0.01 (0.01-0.08) K/mm3 Sodium 140 (136-145) mEq/L Potassium 3.8 (3.5-5.1) mEq/L Chloride 105 (98-107) mEq/L Carbon Dioxide 23 (21-32) mEq/L Anion Gap 15.8 H (5-15) BUN 13 (7-18) mg/dL Creatinine 1.1 (0.7-1.3) mg/dL Est Cr Clr Drug Dosing 62.90 mL/min Estimated GFR (MDRD) > 60 (>60) mL/min BUN/Creatinine Ratio 11.8 L (14-18) Glucose 101 (74-106) mg/dL Calcium 8.3 L (8.5-10.1) mg/dL Total Bilirubin 0.5 (0.2-1.0) mg/dL AST 12 L (15-37) U/L ALT 15 L (16-63) U/L Alkaline Phosphatase 98 (46-116) U/L Total Protein 6.3 L (6.4-8.2) g/dl Albumin 3.0 L (3.4-5.0) g/dl Globulin 3.3 gm/dL Albumin/Globulin Ratio 0.9 L (1-2) Med Orders - Current: Current Medications Aspirin (Ecotrin) 325 mg PO DAILY MONIKA Last Admin: 04/17/17 09:36 Dose: 325 mg Bisacodyl (Dulcolax) 5 mg PO DAILY PRN PRN Reason: Constipation Cyclobenzaprine HCl (Flexeril) 10 mg PO TID PRN PRN Reason: Spasms Diphenhydramine HCl (Benadryl) 25 mg IVPUSH Q4H PRN PRN Reason: Nausea Last Admin: 04/16/17 17:09 Dose: 25 mg Docusate Sodium (Colace) 100 mg PO BID PRN PRN Reason: Constipation Famotidine (Pepcid) 20 mg PO Q12H MONIKA Last Admin: 04/17/17 09:36 Dose: 20 mg Ketorolac Tromethamine (Toradol) 15 mg IVPUSH Q6H PRN PRN Reason: Pain Magnesium Hydroxide (Milk Of Magnesia) 30 ml PO BID PRN PRN Reason: Constipation Morphine Sulfate (Morphine) 2 mg IVPUSH Q2H PRN PRN Reason: Breakthrough Pain Naloxone HCl (Narcan) 0.1 mg IVPUSH Q5M PRN PRN Reason: Oversedation Ondansetron HCl (Zofran) 4 mg IVPUSH Q6H PRN PRN Reason: Nausea/Vomiting Oxycodone/Acetaminophen (Percocet 325-5 Mg) 1 - 2 tab PO Q4H PRN PRN Reason: Pain Last Admin: 04/17/17 09:35 Dose: 2 tab Senna (Senna) 8.6 mg PO BID PRN PRN Reason: Constipation Discontinued Medications Bupivacaine HCl (Marcaine 0.25%) Confirm Administered Dose 30 ml .ROUTE .STK- MED ONE Stop: 04/16/17 08:00 Last Admin: 04/16/17 11:37 Dose: 20 ml Cefazolin Sodium (Ancef) Confirm Administered Dose 2 gm .ROUTE .STK-MED ONE Stop: 04/16/17 07:59 Last Admin: 04/16/17 11:21 Dose: 2 gm Cefazolin Sodium (Ancef) Confirm Administered Dose 2 gm .ROUTE .STK-MED ONE Stop: 04/16/17 09:32 Diphtheria/Tetanus/Acell Pertussis (Adacel) 0.5 ml IM .ONCE ONE Stop: 04/16/17 12:01 Epinephrine HCl (Adrenalin 1:1000) Confirm Administered Dose 1 mg .ROUTE .STK- MED ONE Stop: 04/16/17 07:27 Epinephrine HCl (Adrenalin 1:1000) Confirm Administered Dose 1 mg .ROUTE .STK- MED ONE Stop: 04/16/17 08:38 Fentanyl (Sublimaze) Confirm Administered Dose 100 mcg .ROUTE .STK-MED ONE Stop: 04/16/17 07:36 Fentanyl (Sublimaze) Confirm Administered Dose 250 mcg .ROUTE .STK-MED ONE Stop: 04/16/17 10:24 Fentanyl (Sublimaze) 50 mcg IVPUSH Q5M PRN PRN Reason: PAIN Stop: 04/16/17 15:00 Lactated Ringer's (Ringers, Lactated) 1,000 mls @ 125 mls/hr IV ASDIRECTED [facility] Stop: 04/16/17 23:00 Last Admin: 04/16/17 07:20 Dose: 125 mls/hr Lidocaine HCl (Xylocaine-Mpf 1%) Confirm Administered Dose 6 mls @ as directed .ROUTE .STK-MED ONE Stop: 04/16/17 07:37 Cefazolin Sodium/Dextrose 2 gm (/ Premix) 50 mls @ 100 mls/hr IV Q8H [facility] Stop: 04/17/17 09:29 Last Admin: 04/17/17 09:35 Dose: 100 mls/hr Lactated Ringer's (Ringers, Lactated) Confirm Administered Dose 1,000 mls @ as directed .ROUTE .STK-MED ONE Stop: 04/16/17 10:17 Influenza Virus Vaccine (Pharmacy To Dose - Influenza Vaccine) 1 each IM ONETIME ONE Stop: 04/16/17 09:04 Influenza Virus Vaccine (Flulaval Quad [id number]) 60 mcg IM .ONCE ONE Stop: 04/16/17 12:01 Iodine (Iodine 2% Mild Tincture) Confirm Administered Dose 30 ml .ROUTE .STK- MED ONE Stop: 04/16/17 07:59 Last Admin: 04/16/17 11:19 Dose: 18 ml Lidocaine/Sodium Bicarbonate (Buffered Lidocaine 1% In Ns 8.4%) 0.25 ml .XX ONETIME PRN PRN Reason: Prior to IV Start Stop: 04/16/17 18:00 Last Admin: 04/16/17 07:19 Dose: 0.25 ml Lorazepam (Ativan) 0.5 mg IVPUSH ONETIME ONE Stop: 04/16/17 12:37 Last Admin: 04/16/17 12:38 Dose: 0.5 mg Lorazepam (Ativan) Confirm Administered Dose 2 mg .ROUTE .STK-MED ONE Stop: 04/16/17 12:34 Midazolam HCl (Versed 1 Mg/Ml) Confirm Administered Dose 2 mg .ROUTE .STK-MED ONE Stop: 04/16/17 07:37 Ondansetron HCl (Zofran) Confirm Administered Dose 4 mg .ROUTE .STK-MED ONE Stop: 04/16/17 07:36 Pneumococcal Polyvalent Vaccine (Pneumovax 23) 0.5 ml IM .ONCE ONE Stop: 04/16/17 12:01 Propofol (Diprivan 20 Ml) Confirm Administered Dose 200 mg .ROUTE .STK-MED ONE Stop: 04/16/17 07:36 Rocuronium [place] (Zemuron) Confirm Administered Dose 50 mg .ROUTE .STK-MED ONE Stop: 04/16/17 07:36 Ropivacaine (Naropin 0.5%) Confirm Administered Dose 30 ml .ROUTE .STK-MED ONE Stop: 04/16/17 07:28 Sodium Chloride (Saline Flush) 10 ml FLUSH ASDIRECTED PRN PRN Reason: Keep Vein Open Stop: 04/16/17 18:00 Tranexamic Acid (Cyklokapron) Confirm Administered Dose 1,000 mg .ROUTE .STK- MED ONE Stop: 04/16/17 07:59 Last Admin: 04/16/17 11:29 Dose: 1,000 mg Vancomycin HCl (Vancomycin) Confirm Administered Dose 1 gm .ROUTE .STK-MED ONE Stop: 04/16/17 07:59 Last Admin: 04/16/17 11:31 Dose: 1 gm *Q Meaningful Use (DIS) - VTE *Q VTE Criteria *Q: - Stroke *Q Stroke Criteria *Q: - AMI *Q AMI Criteria *Q:
--- NOTE | 2017-04-17 14:05 | PCM.PN ---
<JorgeDanii M - Last Filed: 04/18/17 13:23> - General Info Date of Service: 04/17/17 Admission Dx/Problem (Free Text): Admission Diagnosis/Problem Admission Diagnosis/Problem Osteoarthritis of shoulder S/P RTSA with Dr. Escobedo, POD #1 Doing well, has been up and ambulatory this morning. Pain controlled, no nausea. Anxious for DC home today. Functional Status: Reports: Pain Controlled, Tolerating Diet, Ambulating, Urinating, Incentive Spirometry. Denies: New Symptoms - Review of Systems General: Reports: No Symptoms HEENT: Reports: No Symptoms Pulmonary: Reports: No Symptoms Cardiovascular: Reports: No Symptoms Gastrointestinal: Reports: No Symptoms Genitourinary: Reports: No Symptoms Musculoskeletal: Reports: Shoulder Pain Skin: Reports: No Symptoms Neurological: Reports: No Symptoms Psychiatric: Reports: No Symptoms - Patient Data Vitals - Most Recent: Last Vital Signs Temp 99.3 F 04/17/17 08:22 Pulse 71 04/17/17 03:48 Resp 19 04/17/17 08:22 BP 118/73 04/17/17 08:22 Pulse Ox 97 04/17/17 09:54 Weight - Most Recent: 83.869 kg I&O - Last 24 Hours: Intake & Output 04/16/17 04/17/17 04/17/17 22:59 06:59 14:59 Intake Total 2400 968 540 Output Total 950 Balance 2400 18 540 Lab Results Last 24 Hours: Laboratory Results - last 24 hr 04/17/17 04/17/17 Range/Units 06:00 06:00 WBC 11.51 H (4.23-9.07) K/mm3 RBC 4.33 L (4.63-6.08) M/mm3 Hgb 13.0 L (13.7-17.5) gm/L Hct 40.3 (40.1-51.0) % MCV 93.1 H (79.0-92.2) fl MCH 30.0 (25.7-32.2) pg MCHC 32.3 (32.2-35.5) g/dl RDW Std Deviation 54.2 H (35.1-43.9) fL Plt Count 216 (163-337) K/mm3 MPV 9.9 (9.4-12.3) fl Neut % (Auto) 72.3 H (34.0-67.9) % Lymph % (Auto) 14.8 L (21.8-53.1) % [place] % (Auto) 12.1 (5.3-12.2) % Eos % (Auto) 0.6 L (0.8-7.0) Baso % (Auto) 0.1 (0.1-1.2) % Neut # (Auto) 8.33 H (1.78-5.38) K/mm3 Lymph # (Auto) 1.70 (1.32-3.57) K/mm3 [place] # (Auto) 1.39 H (0.30-0.82) K/mm3 Eos # (Auto) 0.07 (0.04-0.54) K/mm3 Baso # (Auto) 0.01 (0.01-0.08) K/mm3 Sodium 140 (136-145) mEq/L Potassium 3.8 (3.5-5.1) mEq/L Chloride 105 (98-107) mEq/L Carbon Dioxide 23 (21-32) mEq/L Anion Gap 15.8 H (5-15) BUN 13 (7-18) mg/dL Creatinine 1.1 (0.7-1.3) mg/dL Est Cr Clr Drug Dosing 62.90 mL/min Estimated GFR (MDRD) > 60 (>60) mL/min BUN/Creatinine Ratio 11.8 L (14-18) Glucose 101 (74-106) mg/dL Calcium 8.3 L (8.5-10.1) mg/dL Total Bilirubin 0.5 (0.2-1.0) mg/dL AST 12 L (15-37) U/L ALT 15 L (16-63) U/L Alkaline Phosphatase 98 (46-116) U/L Total Protein 6.3 L (6.4-8.2) g/dl Albumin 3.0 L (3.4-5.0) g/dl Globulin 3.3 gm/dL Albumin/Globulin Ratio 0.9 L (1-2) Med Orders - Current: Current Medications Aspirin (Ecotrin) 325 mg PO DAILY MONIKA Last Admin: 04/17/17 09:36 Dose: 325 mg Bisacodyl (Dulcolax) 5 mg PO DAILY PRN PRN Reason: Constipation Cyclobenzaprine HCl (Flexeril) 10 mg PO TID PRN PRN Reason: Spasms Diphenhydramine HCl (Benadryl) 25 mg IVPUSH Q4H PRN PRN Reason: Nausea Last Admin: 04/16/17 17:09 Dose: 25 mg Docusate Sodium (Colace) 100 mg PO BID PRN PRN Reason: Constipation Famotidine (Pepcid) 20 mg PO Q12H MONIKA Last Admin: 04/17/17 09:36 Dose: 20 mg Ketorolac Tromethamine (Toradol) 15 mg IVPUSH Q6H PRN PRN Reason: Pain Magnesium Hydroxide (Milk Of Magnesia) 30 ml PO BID PRN PRN Reason: Constipation Morphine Sulfate (Morphine) 2 mg IVPUSH Q2H PRN PRN Reason: Breakthrough Pain Naloxone HCl (Narcan) 0.1 mg IVPUSH Q5M PRN PRN Reason: Oversedation Ondansetron HCl (Zofran) 4 mg IVPUSH Q6H PRN PRN Reason: Nausea/Vomiting Oxycodone/Acetaminophen (Percocet 325-5 Mg) 1 - 2 tab PO Q4H PRN PRN Reason: Pain Last Admin: 04/17/17 09:35 Dose: 2 tab Senna (Senna) 8.6 mg PO BID PRN PRN Reason: Constipation Discontinued Medications Bupivacaine HCl (Marcaine 0.25%) Confirm Administered Dose 30 ml .ROUTE .STK- MED ONE Stop: 04/16/17 08:00 Last Admin: 04/16/17 11:37 Dose: 20 ml Cefazolin Sodium (Ancef) Confirm Administered Dose 2 gm .ROUTE .STK-MED ONE Stop: 04/16/17 07:59 Last Admin: 04/16/17 11:21 Dose: 2 gm Cefazolin Sodium (Ancef) Confirm Administered Dose 2 gm .ROUTE .STK-MED ONE Stop: 04/16/17 09:32 Diphtheria/Tetanus/Acell Pertussis (Adacel) 0.5 ml IM .ONCE ONE Stop: 04/16/17 12:01 Epinephrine HCl (Adrenalin 1:1000) Confirm Administered Dose 1 mg .ROUTE .STK- MED ONE Stop: 04/16/17 07:27 Epinephrine HCl (Adrenalin 1:1000) Confirm Administered Dose 1 mg .ROUTE .STK- MED ONE Stop: 04/16/17 08:38 Fentanyl (Sublimaze) Confirm Administered Dose 100 mcg .ROUTE .STK-MED ONE Stop: 04/16/17 07:36 Fentanyl (Sublimaze) Confirm Administered Dose 250 mcg .ROUTE .STK-MED ONE Stop: 04/16/17 10:24 Fentanyl (Sublimaze) 50 mcg IVPUSH Q5M PRN PRN Reason: PAIN Stop: 04/16/17 15:00 Lactated Ringer's (Ringers, Lactated) 1,000 mls @ 125 mls/hr IV ASDIRECTED [facility] Stop: 04/16/17 23:00 Last Admin: 04/16/17 07:20 Dose: 125 mls/hr Lidocaine HCl (Xylocaine-Mpf 1%) Confirm Administered Dose 6 mls @ as directed .ROUTE .STK-MED ONE Stop: 04/16/17 07:37 Cefazolin Sodium/Dextrose 2 gm (/ Premix) 50 mls @ 100 mls/hr IV Q8H [facility] Stop: 04/17/17 09:29 Last Admin: 04/17/17 09:35 Dose: 100 mls/hr Lactated Ringer's (Ringers, Lactated) Confirm Administered Dose 1,000 mls @ as directed .ROUTE .STK-MED ONE Stop: 04/16/17 10:17 Influenza Virus Vaccine (Pharmacy To Dose - Influenza Vaccine) 1 each IM ONETIME ONE Stop: 04/16/17 09:04 Influenza Virus Vaccine (Flulaval Quad [id number]) 60 mcg IM .ONCE ONE Stop: 04/16/17 12:01 Iodine (Iodine 2% Mild Tincture) Confirm Administered Dose 30 ml .ROUTE .STK- MED ONE Stop: 04/16/17 07:59 Last Admin: 04/16/17 11:19 Dose: 18 ml Lidocaine/Sodium Bicarbonate (Buffered Lidocaine 1% In Ns 8.4%) 0.25 ml .XX ONETIME PRN PRN Reason: Prior to IV Start Stop: 04/16/17 18:00 Last Admin: 04/16/17 07:19 Dose: 0.25 ml Lorazepam (Ativan) 0.5 mg IVPUSH ONETIME ONE Stop: 04/16/17 12:37 Last Admin: 04/16/17 12:38 Dose: 0.5 mg Lorazepam (Ativan) Confirm Administered Dose 2 mg .ROUTE .STK-MED ONE Stop: 04/16/17 12:34 Midazolam HCl (Versed 1 Mg/Ml) Confirm Administered Dose 2 mg .ROUTE .STK-MED ONE Stop: 04/16/17 07:37 Ondansetron HCl (Zofran) Confirm Administered Dose 4 mg .ROUTE .STK-MED ONE Stop: 04/16/17 07:36 Pneumococcal Polyvalent Vaccine (Pneumovax 23) 0.5 ml IM .ONCE ONE Stop: 04/16/17 12:01 Propofol (Diprivan 20 Ml) Confirm Administered Dose 200 mg .ROUTE .STK-MED ONE Stop: 04/16/17 07:36 Rocuronium Amistad (Zemuron) Confirm Administered Dose 50 mg .ROUTE .STK-MED ONE Stop: 04/16/17 07:36 Ropivacaine (Naropin 0.5%) Confirm Administered Dose 30 ml .ROUTE .STK-MED ONE Stop: 04/16/17 07:28 Sodium Chloride (Saline Flush) 10 ml FLUSH ASDIRECTED PRN PRN Reason: Keep Vein Open Stop: 04/16/17 18:00 Tranexamic Acid (Cyklokapron) Confirm Administered Dose 1,000 mg .ROUTE .STK- MED ONE Stop: 04/16/17 07:59 Last Admin: 04/16/17 11:29 Dose: 1,000 mg Vancomycin HCl (Vancomycin) Confirm Administered Dose 1 gm .ROUTE .STK-MED ONE Stop: 04/16/17 07:59 Last Admin: 04/16/17 11:31 Dose: 1 gm - Exam Quality Assessment: DVT Prophylaxis General: Alert, Oriented, Cooperative, No Acute Distress HEENT: Pupils Equal, EOMI, Mucous Membr. Moist/[place]ck: Supple Lungs: Clear to Auscultation, Normal Respiratory Effort Cardiovascular: Regular Rate, Regular Rhythm GI/Abdominal Exam: Normal Bowel Sounds, Soft, Non-Tender (Male) Exam: Deferred Extremities: Normal Capillary Refill, Other (left arm in sling/postop brace) Peripheral Pulses: 2+: Dorsalis Pedis (L), Dorsalis Pedis (R) Neurological: No New Focal Deficit Psy/Mental Status: Alert, Normal Affect, Normal Mood - Problem List & Annotations (1) Status post reverse arthroplasty of left shoulder SNOMED Code(s): 306430246 Code(s): Z96.612 - PRESENCE OF LEFT ARTIFICIAL SHOULDER JOINT Status: Acute Priority: High (2) Osteoarthritis of left glenohumeral joint SNOMED Code(s): 308454953 Code(s): M19.012 - PRIMARY OSTEOARTHRITIS, LEFT SHOULDER Status: Chronic Priority: High (3) Emphysema of lung SNOMED Code(s): 44404706 Code(s): J43.9 - EMPHYSEMA, UNSPECIFIED Status: Chronic Priority: Medium QualifierTitle: Emphysema type: unspecified Qualified Code(s): J43.9 - Emphysema, unspecified (4) Hypothyroidism SNOMED Code(s): 00814068 Code(s): E03.9 - HYPOTHYROIDISM, UNSPECIFIED Status: Chronic Priority: Low QualifierTitle: Hypothyroidism type: unspecified Qualified Code(s): E03.9 - Hypothyroidism, unspecified (5) Leukocytosis SNOMED Code(s): 382644746 Code(s): D72.829 - ELEVATED WHITE BLOOD CELL COUNT, UNSPECIFIED Status: Chronic Priority: Low QualifierTitle: Leukocytosis type: unspecified Qualified Code(s): D72.829 - Elevated white blood cell count, unspecified (6) Thrombocytosis SNOMED Code(s): 2769774 Code(s): D47.3 - ESSENTIAL (HEMORRHAGIC) THROMBOCYTHEMIA Status: Chronic Priority: Low - Problem List Review Problem List Initiated/Reviewed/Updated: Yes - Plan Plan:: I/P: S/P Lt RTSA, POD #[address] Escobedo -Pain management and DVT prophylax per primary team -PT/OT -RT/IS -Hgb stable COPD/emphysema/tobacco use- stable Patient is stable from medical/hospitalist standpoint; OK for DC home today Patient is Full Code status. <Jen Castro - Last Filed: 04/18/17 14:00> - Patient Data Vitals - Most Recent: Last Vital Signs Temp 37.4 C 04/17/17 08:22 Pulse 71 04/17/17 03:48 Resp 19 04/17/17 08:22 BP 118/73 04/17/17 08:22 Pulse Ox 97 04/17/17 09:54 Med Orders - Current: Current Medications Discontinued Medications Aspirin (Ecotrin) 325 mg PO DAILY [facility] Last Admin: 04/17/17 09:36 Dose: 325 mg Bisacodyl (Dulcolax) 5 mg PO DAILY PRN PRN Reason: Constipation Bupivacaine HCl (Marcaine 0.25%) Confirm Administered Dose 30 ml .ROUTE .STK- MED ONE Stop: 04/16/17 08:00 Last Admin: 04/16/17 11:37 Dose: 20 ml Cefazolin Sodium (Ancef) Confirm Administered Dose 2 gm .ROUTE .STK-MED ONE Stop: 04/16/17 07:59 Last Admin: 04/16/17 11:21 Dose: 2 gm Cefazolin Sodium (Ancef) Confirm Administered Dose 2 gm .ROUTE .STK-MED ONE Stop: 04/16/17 09:32 Cyclobenzaprine HCl (Flexeril) 10 mg PO TID PRN PRN Reason: Spasms Diphenhydramine HCl (Benadryl) 25 mg IVPUSH Q4H PRN PRN Reason: Nausea Last Admin: 04/16/17 17:09 Dose: 25 mg Diphtheria/Tetanus/Acell Pertussis (Adacel) 0.5 ml IM .ONCE ONE Stop: 04/16/17 12:01 Docusate Sodium (Colace) 100 mg PO BID PRN PRN Reason: Constipation Epinephrine HCl (Adrenalin 1:1000) Confirm Administered Dose 1 mg .ROUTE .STK- MED ONE Stop: 04/16/17 07:27 Epinephrine HCl (Adrenalin 1:1000) Confirm Administered Dose 1 mg .ROUTE .STK- MED ONE Stop: 04/16/17 08:38 Famotidine (Pepcid) 20 mg PO Q12H [facility] Last Admin: 04/17/17 09:36 Dose: 20 mg Fentanyl (Sublimaze) Confirm Administered Dose 100 mcg .ROUTE .STK-MED ONE Stop: 04/16/17 07:36 Fentanyl (Sublimaze) Confirm Administered Dose 250 mcg .ROUTE .STK-MED ONE Stop: 04/16/17 10:24 Fentanyl (Sublimaze) 50 mcg IVPUSH Q5M PRN PRN Reason: PAIN Stop: 04/16/17 15:00 Lactated Ringer's (Ringers, Lactated) 1,000 mls @ 125 mls/hr IV ASDIRECTED [facility] Stop: 04/16/17 23:00 Last Admin: 04/16/17 07:20 Dose: 125 mls/hr Lidocaine HCl (Xylocaine-Mpf 1%) Confirm Administered Dose 6 mls @ as directed .ROUTE .STK-MED ONE Stop: 04/16/17 07:37 Cefazolin Sodium/Dextrose 2 gm (/ Premix) 50 mls @ 100 mls/hr IV Q8H [facility] Stop: 04/17/17 09:29 Last Admin: 04/17/17 09:35 Dose: 100 mls/hr Lactated Ringer's (Ringers, Lactated) Confirm Administered Dose 1,000 mls @ as directed .ROUTE .STK-MED ONE Stop: 04/16/17 10:17 Influenza Virus Vaccine (Pharmacy To Dose - Influenza Vaccine) 1 each IM ONETIME ONE Stop: 04/16/17 09:04 Influenza Virus Vaccine (Flulaval Quad [id number]) 60 mcg IM .ONCE ONE Stop: 04/16/17 12:01 Iodine (Iodine 2% Mild Tincture) Confirm Administered Dose 30 ml .ROUTE .STK- MED ONE Stop: 04/16/17 07:59 Last Admin: 04/16/17 11:19 Dose: 18 ml Ketorolac Tromethamine (Toradol) 15 mg IVPUSH Q6H PRN PRN Reason: Pain Lidocaine/Sodium Bicarbonate (Buffered Lidocaine 1% In Ns 8.4%) 0.25 ml .XX ONETIME PRN PRN Reason: Prior to IV Start Stop: 04/16/17 18:00 Last Admin: 04/16/17 07:19 Dose: 0.25 ml Lorazepam (Ativan) 0.5 mg IVPUSH ONETIME ONE Stop: 04/16/17 12:37 Last Admin: 04/16/17 12:38 Dose: 0.5 mg Lorazepam (Ativan) Confirm Administered Dose 2 mg .ROUTE .STK-MED ONE Stop: 04/16/17 12:34 Magnesium Hydroxide (Milk Of Magnesia) 30 ml PO BID PRN PRN Reason: Constipation Midazolam HCl (Versed 1 Mg/Ml) Confirm Administered Dose 2 mg .ROUTE .STK-MED ONE Stop: 04/16/17 07:37 Morphine Sulfate (Morphine) 2 mg IVPUSH Q2H PRN PRN Reason: Breakthrough Pain Naloxone HCl (Narcan) 0.1 mg IVPUSH Q5M PRN PRN Reason: Oversedation Ondansetron HCl (Zofran) Confirm Administered Dose 4 mg .ROUTE .STK-MED ONE Stop: 04/16/17 07:36 Ondansetron HCl (Zofran) 4 mg IVPUSH Q6H PRN PRN Reason: Nausea/Vomiting Oxycodone/Acetaminophen (Percocet 325-5 Mg) 1 - 2 tab PO Q4H PRN PRN Reason: Pain Last Admin: 04/17/17 09:35 Dose: 2 tab Pneumococcal Polyvalent Vaccine (Pneumovax 23) 0.5 ml IM .ONCE ONE Stop: 04/16/17 12:01 Propofol (Diprivan 20 Ml) Confirm Administered Dose 200 mg .ROUTE .STK-MED ONE Stop: 04/16/17 07:36 Rocuronium Amistad (Zemuron) Confirm Administered Dose 50 mg .ROUTE .STK-MED ONE Stop: 04/16/17 07:36 Ropivacaine (Naropin 0.5%) Confirm Administered Dose 30 ml .ROUTE .STK-MED ONE Stop: 04/16/17 07:28 Senna (Senna) 8.6 mg PO BID PRN PRN Reason: Constipation Sodium Chloride (Saline Flush) 10 ml FLUSH ASDIRECTED PRN PRN Reason: Keep Vein Open Stop: 04/16/17 18:00 Tranexamic Acid (Cyklokapron) Confirm Administered Dose 1,000 mg .ROUTE .STK- MED ONE Stop: 04/16/17 07:59 Last Admin: 04/16/17 11:29 Dose: 1,000 mg Vancomycin HCl (Vancomycin) Confirm Administered Dose 1 gm .ROUTE .STK-MED ONE Stop: 04/16/17 07:59 Last Admin: 04/16/17 11:31 Dose: 1 gm - Plan Plan:: DC today per ortho, medically stable.
--- NOTE | 2017-04-22 08:53 | PCM.OPNOTE ---
- General Post-Op/Procedure Note Date of Surgery/Procedure: 04/16/17 Operative Procedure(s): left reverse total shoulder arthroplasty Pre Op Diagnosis: left shoulder rotator cuff tear arthropathy Post-Op Diagnosis: Same Anesthesia Technique: General ET Tube, Regional Block Primary Surgeon: Duke Escobedo Anesthesia Provider: Vinicio Polk Master Merchandiser: Renu Arias Master Merchandiser: Haydee Bermudez EBL in mLs: 200 Complications: None Condition: Good
--- NOTE | 2017-04-22 09:27 | OR ---
DATE OF OPERATION: 04/16/2017 SURGEON: Duke Escobedo MD OPERATION PERFORMED: Left reverse total shoulder arthroplasty. PREOPERATIVE DIAGNOSIS: Left shoulder rotator cuff tear arthropathy. POSTOPERATIVE DIAGNOSIS: Left shoulder rotator cuff tear arthropathy. ANESTHESIA: General endotracheal intubation with regional interscalene block. ANESTHESIA PROVIDER: Vinicio Polk CRNA. ASSISTANTS: Renu Arias PA-C, and Haydee Bermudez LPN. ESTIMATED BLOOD LOSS: 200 mL. COMPLICATIONS: None. CONDITION: Stable. DESCRIPTION OF PROCEDURE: The patient was identified in the preop holding area. Proper site was marked and identified by the surgeon. The patient was taken back to the operating theater, where after adequate anesthesia, the patient was placed in a supine position on a radiolucent table. The left shoulder was then sterilely prepped and draped in the usual sterile fashion. OR-wide time-out was performed. The patient received 2 grams of IV Ancef. The patient was then placed in a reverse Trendelenburg position. Standard incision was made over the deltopectoral interval. This was taken down to the cephalic vein. The cephalic vein was identified, and the deltopectoral interval was created. This was taken down to the clavipectoral fascia. The clavipectoral fascia was incised. The conjoined tendon was retracted medially. The anterior humeral circumflex vessels were identified and were ligated using a stick tie with an 0 Vicryl. At this time, the biceps tendon was identified and a sub-pectoralis biceps tenodesis was performed. The biceps tendon was then tenotomized proximally to this, and a curved Caballero was used for release of the biceps tendon interval all the way up to the level of the glenoid. Proximal portion of the biceps tendon was then excised. Takedown of the subscapularis tendon was then done with peel back maneuver, and the glenohumeral joint was dislocated. At this time, guidepin was placed in the upper outer portion of the rotator cuff down the canal. A starter awl was then placed and then the neck-cut guide was placed down the intramedullary canal, in 30 degrees of retroversion, the neck cut was then completed. At this time, a cap was placed over the humeral surface and attention was turned to the glenoid. Anterior and posterior glenoid retraction was then done. The anterior capsule was removed as well as takedown of the inferior capsule and the posterior labrum was excised. At this time, we had adequate visualization of the glenoid. A guidepin was placed in a center-center position in the glenoid. The central reamer was then done and then the peripheral reamer for a small baseplate was completed as well as then a medium baseplate was then completed. At this time, it was decided that we would use a small glenosphere baseplate. The glenosphere baseplate was then impacted into position. A central lag screw was placed and then a peripheral locking screws both inferiorly and superiorly were placed in a divergent fashion. At this time, attention was turned back to the humerus. Starting with a 5 broach, we were able to broach up to a size 9, which was found be rotation and vertically stable. The reamer for the humeral portion of the component was then used and trial implants with a 36 +4 were then utilized. It was found to have adequate tension with a +6 trial. A 36 +4 mm glenosphere was then placed and impacted into place. Attention was turned to the humerus. A size 9 stem with 135 degrees humeral portion was then impacted into place. We again trialed the +3 and +6 liner. A +6 was found to have adequate tension and no signs of dislocation throughout range of motion. At this time, a +6 mm Arthrex liner was then impacted into place. The shoulder was then relocated. C-arm fluoroscopy was utilized and showed all the positions in good alignment and all well seated. At this time, adequate saline was irrigated through the wound with pulse lavage irrigation with Ancef and 1 L dilute Betadine solution. Injection was then completed in the soft tissues. FiberWire was used for tag of the deltopectoral interval. 2-0 Vicryl was used subcutaneously and Prineo was used for the skin. The patient tolerated the procedure well and was sent to PACU in a stable condition. HERMAN /[id number]
== END 2017-04-17 12:12 | disposition home or self-care (01) | DRG 483 ==
LOC: JD.MS 04-16 06:53
PROVIDERS: ADMIT Orthopaedic Surgery; ATTEND Orthopaedic Surgery
PROC: 0RRK00Z Replacement of Left Shoulder Joint with Reverse Ball and Socket Synthetic Substitute, Open Approach (ICD-10-PCS; principal; 2017-04-16)
DX: M75.102 Unspecified rotator cuff tear or rupture of left shoulder, not specified as traumatic (principal); M19.012 Primary osteoarthritis, left shoulder; J43.9 Emphysema, unspecified; E03.9 Hypothyroidism, unspecified; D47.3 Essential (hemorrhagic) thrombocythemia; Z87.891 Personal history of nicotine dependence
CPT/HCPCS: 01638; 36415; 64415; 73020-26-LT; 73020-LT; 76000; 76000-26; 80053; 85025; 87641; 97110-GP; 97140-GP; 97162-GP; 97165-GO; 97535-GO; A9270-GY; C1713; C1776; J0171; J0690; J1200; J2060; J2250; J2405; J2704; J2795; J3010; J3370; J3490; J7120

== ENCOUNTER 2017-08-29 10:45 | Inpatient (IN) | payer MEDICAID ==
[2017-09-08] MEDS ORDERED: Sodium Chloride 0.9% 10 ML Syringe FLUSH PRN (07:00)
[2017-09-08] MEDS ORDERED: Lidocaine 1%/Sod Bicarbonate in NS 8.4% 1 ML Syringe IDERM PRN (07:00)
[2017-09-08] MEDS ORDERED: Ketorolac 15 MG/ML SDV IVPUSH PRN (07:02)
[2017-09-08] MEDS ORDERED: Cyclobenzaprine 10 MG Tab PO PRN (07:02)
[2017-09-08] MEDS ORDERED: Naloxone 0.4 MG/ML SDV IVPUSH PRN (07:03)
[2017-09-08] MEDS ORDERED: Magnesium Hydroxide 400 MG/5 ML Susp 30 ML Cup PO PRN (07:03)
[2017-09-08] MEDS ORDERED: Ondansetron 4 MG/2 ML SDV IVPUSH PRN ×2 (07:03→14:02)
[2017-09-08] MEDS ORDERED: Sennosides 8.6 MG Tab PO PRN (07:03)
[2017-09-08] MEDS ORDERED: Morphine 2 MG/ML Syringe IVPUSH PRN (07:03)
[2017-09-08] MEDS ORDERED: diphenhydrAMINE 50 MG/ML SDV IVPUSH PRN ×2 (07:03→14:02)
[2017-09-08] MEDS ORDERED: Bisacodyl 5 MG Tab PO PRN (07:03)
[2017-09-08] MEDS ORDERED: Ropivacaine 0.5% 5 MG/ML 30 ML SDV ONE (07:14)
[2017-09-08] MEDS ORDERED: EPINEPHrine 1 MG/ML SDV ONE (07:14)
[2017-09-08] MEDS: Lactated Ringers 1,000 ML IV SCH ×2 (08:45→14:40)
[2017-09-08] MEDS ORDERED: FLU Vacc QS 2017-18 (6mos UP)/PF 60 MCG/0.5 ML Syringe IM ONE (09:45)
[2017-09-08] MEDS ORDERED: Dexamethasone 4 MG/ML SDV ONE (10:20)
[2017-09-08] MEDS ORDERED: Midazolam 1 MG/ML 2 ML SDV ONE (10:20)
[2017-09-08] MEDS ORDERED: ceFAZolin 1 GM Vial ONE ×2 (10:20→10:53)
[2017-09-08] MEDS ORDERED: Ondansetron 4 MG/2 ML SDV ONE (10:20)
[2017-09-08] MEDS ORDERED: Propofol 200 MG/20 ML SDV ONE (10:20)
[2017-09-08] MEDS ORDERED: fentaNYL 100 MCG/2 ML SDV ONE (10:20)
[2017-09-08] MEDS ORDERED: Bupivacaine 0.25% 30 ML SDV ONE (10:53)
[2017-09-08] MEDS ORDERED: Albuterol 0.083% 2.5 MG/3 ML Neb Soln NEB SCH ×2 (11:00→11:30)
--- NOTE | 2017-09-08 11:06 | PCM.PREANE ---
Preanesthetic Assessment - Procedure Proposed Procedure: right reverse total shoulder arthroplasty - Anesthesia/Transfusion/Family Hx Anesthesia History: Prior Anesthesia Without Reaction Family History of Anesthesia Reaction: No Transfusion History: No Prior Transfusion(s) Type of Transfusion Reactions: Reports: Unknown Intubation History: Unknown - Review of Systems General: No Symptoms Pulmonary: Wheezing Cardiovascular: No Symptoms Gastrointestinal: No Symptoms Neurological: No Symptoms Other: Reports: None, Thyroid Problems - Physical Assessment NPO Status Date: 09/07/17 NPO Status Time: 22:00 O2 Sat by Pulse Oximetry: 97 Respiratory Rate: 16 Vital Signs: Last Vital Signs Temp 36.7 C 09/08/17 08:30 Pulse 74 09/08/17 08:30 Resp 16 09/08/17 08:30 BP 139/98 H 09/08/17 08:30 Pulse Ox 97 09/08/17 08:30 Height: 1.65 m Weight: 82.282 kg ASA Class: 2 Mental Status: Alert & Oriented x3 Airway Class: Mallampati = 2 Dentition: Reports: Broken Tooth/Teeth (multipe broken teeth ) Thyro-Mental Finger Breadths: 3 Mouth Opening Finger Breadths: 3 ROM/Head Extension: Full Lungs: Clear to Auscultation, Normal Respiratory Effort Cardiovascular: Regular Rate, Regular Rhythm - Lab Values: Laboratory Last Values Urine Cotinine 716 ng/mL (<5) H 08/20/17 10:43 Urine Nicotine 8 ng/mL (<2) H 08/20/17 10:43 Urine Nornicotine 9 ng/mL (<2) H 08/20/17 10:43 U 1-Tkxdxfn-Ccaclefw 740 ng/mL (<50) H 08/20/17 10:43 Urine Anabasine <5 ng/mL (<10) 08/20/17 10:43 MRSA (PCR) Negative 08/27/17 14:51 - Allergies Allergies/Adverse Reactions: Allergies Allergy/AdvReac Type Severity Reaction Status Date / Time No Known Allergies Allergy Verified 09/05/17 09:59 - Blood Blood Available: No Product(s) Available: None - Anesthesia Plan Pre-Op Medication Ordered: None - Acknowledgements Anesthesia Type Planned: General Anesthesia, Regional Block (right interscalene nerve block) Pt an Appropriate Candidate for the Planned Anesthesia: Yes Alternatives and Risks of Anesthesia Discussed w Pt/Guardian: Yes Pt/Guardian Understands and Agrees with Anesthesia Plan: Yes PreAnesthesia Questionnaire HEENT History: Reports: Impaired Vision, Other (See Below) Other HEENT History: glasses Cardiovascular History: Reports: None Respiratory History: Other Respiratory History: emphysema Gastrointestinal History: Reports: None Genitourinary History: Reports: None [employer]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 Musculoskeletal History: Reports: Other (See Below) Other Musculoskeletal History: ac joint bone spurs, L glenohumeral arthritis, R wrist pain with swelling, L shoulder rotator cuff impingement, bilateral carpal syndrome, knee surgery Neurological History: Reports: None Psychiatric History: Reports: None Endocrine/Metabolic History: Reports: Hypothyroidism Hematologic History: Other Hematologic History: leukocytosis, thrombocytosis Immunologic History: Reports: None Oncologic (Cancer) History: Reports: None Dermatologic History: Reports: None - Infectious Disease History Infectious Disease History: Reports: Chicken Pox, Measles, Mumps - Past Surgical History Head Surgeries/Procedures: Reports: None Cardiovascular Surgical History: Reports: None Respiratory Surgical History: Reports: None GI Surgical History: Reports: None, Other (See Below) Female Surgical History: Reports: None Other Female Surgeries/Procedures: prostate surgery Male Surgical History: Reports: Other (See Below) Other Male Surgeries/Procedures: Patient reports enlarged prostate about 6 years ago. No current issues. Endocrine Surgical History: Reports: None Neurological Surgical History: Reports: None Musculoskeletal Surgical History: Reports: Other (See Below) Other Musculoskeletal Surgeries/Procedures:: knee surgery, left shoulder replacement Oncologic Surgical History: Reports: None Dermatological Surgical History: Reports: None - SUBSTANCE USE Smoking Status *Q: Former Smoker (30 years 1.5ppd) Tobacco Use Within Last Twelve Months: Cigarettes Second Hand Smoke Exposure: No Days Per Week of Alcohol Use: 0 Number of Drinks Per Day: 0 Total Drinks Per Week: 0 Recreational Drug Use History: No - HOME MEDS Home Medications: Home Meds RX: Acetaminophen [Tylenol] 650 mg PO Q4H PRN #0 04/17/17 [Rx] RX: Acetaminophen/oxyCODONE [Percocet 325-5 MG] 1 - 2 tab PO Q4H PRN #60 tablet 04/17/17 [Rx] Cholecalciferol (Vitamin D3) [Vitamin D3] 5,000 unit PO DAILY 09/05/17 [History] - CURRENT (IN HOUSE) MEDS Current Meds: Current Medications Albuterol (Proventil Neb Soln) 2.5 mg NEB ONETIME [facility] Stop: 09/08/17 11:01 Aspirin (Ecotrin) 325 mg PO DAILY [facility] Bisacodyl (Dulcolax) 5 mg PO DAILY PRN PRN Reason: Constipation Cyclobenzaprine HCl (Flexeril) 10 mg PO TID PRN PRN Reason: Spasms Diphenhydramine HCl (Benadryl) 25 mg IVPUSH Q4H PRN PRN Reason: Nausea Docusate Sodium (Colace) 100 mg PO BID [facility] Famotidine (Pepcid) 20 mg PO Q12H [facility] Lactated Ringer's (Ringers, Lactated) 1,000 mls @ 125 mls/hr IV ASDIRECTED [facility] Last Admin: 09/08/17 08:45 Dose: 125 mls/hr Cefazolin Sodium/Dextrose 2 gm (/ Premix) 50 mls @ 100 mls/hr IV Q8H [facility] Stop: 09/09/17 10:59 Ketorolac Tromethamine (Toradol) 15 mg IVPUSH Q6H PRN PRN Reason: Pain Lidocaine/Sodium Bicarbonate (Buffered Lidocaine 1% In Ns 8.4%) 0.25 ml IDERM ONETIME PRN PRN Reason: Prior to IV Start Stop: 09/08/17 18:00 Last Admin: 09/08/17 08:45 Dose: 0.25 ml Magnesium Hydroxide (Milk Of Magnesia) 30 ml PO BID PRN PRN Reason: Constipation Morphine Sulfate (Morphine) 2 mg IVPUSH Q2H PRN PRN Reason: Breakthrough Pain Naloxone HCl (Narcan) 0.1 mg IVPUSH Q5M PRN PRN Reason: Oversedation Ondansetron HCl (Zofran) 4 mg IVPUSH Q6H PRN PRN Reason: Nausea/Vomiting Oxycodone/Acetaminophen (Percocet 325-5 Mg) 1 - 2 tab PO Q4H PRN PRN Reason: Pain Senna (Senna) 8.6 mg PO BID PRN PRN Reason: Constipation Sodium Chloride (Saline Flush) 10 ml FLUSH ASDIRECTED PRN PRN Reason: Keep Vein Open Discontinued Medications Cefazolin Sodium (Ancef) Confirm Administered Dose 2 gm .ROUTE .STK-MED ONE Stop: 09/08/17 10:21 Dexamethasone (Dexamethasone) Confirm Administered Dose 4 mg .ROUTE .STK-MED ONE Stop: 09/08/17 10:21 Epinephrine HCl (Adrenalin) Confirm Administered Dose 1 mg .ROUTE .STK-MED ONE Stop: 09/08/17 07:15 Fentanyl (Sublimaze) Confirm Administered Dose 100 mcg .ROUTE .STK-MED ONE Stop: 09/08/17 10:21 Influenza Virus Vaccine (Pharmacy To Dose - Influenza Vaccine) 1 each IM ONETIME ONE Stop: 09/08/17 09:35 Influenza Virus Vaccine (Flulaval Quad [id number]) 60 mcg IM .ONCE ONE Stop: 09/08/17 09:46 Midazolam HCl (Versed 1 Mg/Ml) Confirm Administered Dose 2 mg .ROUTE .STK-MED ONE Stop: 09/08/17 10:21 Ondansetron HCl (Zofran) Confirm Administered Dose 4 mg .ROUTE .STK-MED ONE Stop: 09/08/17 10:21 Propofol (Diprivan 20 Ml) Confirm Administered Dose 200 mg .ROUTE .STK-MED ONE Stop: 09/08/17 10:21 Ropivacaine (Naropin 0.5%) Confirm Administered Dose 30 ml .ROUTE .STK-MED ONE Stop: 09/08/17 07:15
[2017-09-08] MEDS ORDERED: Morphine 4 MG/ML Syringe IVPUSH PRN (11:19)
[2017-09-08] MEDS ORDERED: Lidocaine 1% 2 ML ONE (11:24)
--- NOTE | 2017-09-08 12:46 | PCM.CONS ---
H&P History of Present Illness - General Date of Service: 09/08/17 Admit Problem/Dx: Admission Diagnosis/Problem Admission Diagnosis/Problem Osteoarthritis of shoulder Source of Information: Patient, Provider, RN, RN Notes Reviewed, Other ( surgical notes ) - History of Present Illness Initial Comments - Free Text/Narative: Rony Avery is a 57 yo male patient of Dr. Escobedo who is post-operative day 0 of right reverse total shoulder. Hospital medicine was consulted for post- operative medical care. At this time he is resting comfortably in bed. Pain is controlled. He denies any chest pain, shortness of breath, palpitations, nausea , or vomiting. He carries a history of: Emphysema, hypothyroidism, thrombocytosis. He is a former smoker. He is a full code. His primary care provider is Daryl Rowland PA-C here at [facility]. Right Shoulder Pain Score (Numeric/FACES): 0 - Related Data Allergies/Adverse Reactions: Allergies Allergy/AdvReac Type Severity Reaction Status Date / Time No Known Allergies Allergy Verified 09/08/17 16:11 Home Medications: Home Meds Acetaminophen [Tylenol] 650 mg PO Q4H PRN #0 04/17/17 [Rx] Acetaminophen/oxyCODONE [Percocet 325-5 MG] 1 - 2 tab PO Q4H PRN #60 tablet 06/22 [Rx] Cholecalciferol (Vitamin D3) [Vitamin D3] 5,000 unit PO DAILY 09/05/17 [History] Past Medical History HEENT History: Reports: Impaired Vision, Other (See Below) Other HEENT History: glasses Cardiovascular History: Reports: None Respiratory History: Other Respiratory History: emphysema Gastrointestinal History: Reports: None Genitourinary History: Reports: None 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 Musculoskeletal History: Reports: Other (See Below) Other Musculoskeletal History: ac joint bone spurs, L glenohumeral arthritis, R wrist pain with swelling, L shoulder rotator cuff impingement, bilateral carpal syndrome, knee surgery Neurological History: Reports: None Psychiatric History: Reports: None Endocrine/Metabolic History: Reports: Hypothyroidism Hematologic History: Other Hematologic History: leukocytosis, thrombocytosis Immunologic History: Reports: None Oncologic (Cancer) History: Reports: None Dermatologic History: Reports: None - Infectious Disease History Infectious Disease History: Reports: Chicken Pox, Measles, Mumps - Past Surgical History Head Surgeries/Procedures: Reports: None Cardiovascular Surgical History: Reports: None Respiratory Surgical History: Reports: None GI Surgical History: Reports: None, Other (See Below) Female Surgical History: Reports: None Other Female Surgeries/Procedures: prostate surgery Male Surgical History: Reports: Other (See Below) Other Male Surgeries/Procedures: Patient reports enlarged prostate about 6 years ago. No current issues. Endocrine Surgical History: Reports: None Neurological Surgical History: Reports: None Musculoskeletal Surgical History: Reports: Other (See Below) Other Musculoskeletal Surgeries/Procedures:: knee surgery, left shoulder replacement Oncologic Surgical History: Reports: None Dermatological Surgical History: Reports: None Social & Family History - Family History HEENT: Reports: Impaired Vision Other HEENT Family History: glasses Cardiac: Reports: Hypertension, Pacemaker GI: Reports: None - Tobacco Use Smoking Status *Q: Former Smoker (30 years 1.5ppd) Years of Tobacco use: 40 Packs/Tins Daily: 0.5 Used Tobacco, but Quit: Yes Month Tobacco Last Used: July, patient states he quit for procedure Second Hand Smoke Exposure: No - Caffeine Use Caffeine Use: Reports: Coffee - Alcohol Use Days Per Week of Alcohol Use: 0 Number of Drinks Per Day: 0 Total Drinks Per Week: 0 - Recreational Drug Use Recreational Drug Use: No Drug Use in Last 12 Months: No H&P Review of Systems - Review of Systems: Review Of Systems: See Below General: Reports: No Symptoms HEENT: Reports: No Symptoms Pulmonary: Reports: No Symptoms Cardiovascular: Reports: No Symptoms Gastrointestinal: Reports: No Symptoms Genitourinary: Reports: No Symptoms Musculoskeletal: Reports: Joint Pain Skin: Reports: No Symptoms Psychiatric: Reports: No Symptoms Neurological: Reports: No Symptoms Hematologic/Lymphatic: Reports: No Symptoms Immunologic: Reports: No Symptoms Exam - Exam Exam: See Below - Vital Signs Vital Signs: Last Vital Signs Temp 98.1 F 09/08/17 08:30 Pulse 74 09/08/17 08:30 Resp 12 09/08/17 11:35 BP 124/73 09/08/17 11:35 Pulse Ox 99 09/08/17 11:40 Weight: 181 lb 6.4 oz - Exam Quality Assessment: DVT Prophylaxis General: Alert, Oriented, Cooperative. No: Mild Distress HEENT: PERRLA, Hearing Intact, Mucosa Moist & [place], Nares Patent, Normal Nasal Septum, Posterior Pharynx Clear, Conjunctiva Clear, EOMI, EACs Clear, TMs Clear Neck: Supple, Trachea Midline Lungs: Clear to Auscultation, Normal Respiratory Effort Cardiovascular: Regular Rate, Regular Rhythm GI/Abdominal Exam: Normal Bowel Sounds, Soft, Non-Tender, No Organomegaly, No Distention, No Abnormal Bruit, No Mass, Pelvis Stable (Male) Exam: Deferred Rectal (Males) Exam: Deferred Back Exam: Normal Inspection Extremities: No Pedal Edema, Normal Capillary Refill, Limited Range of Motion, Other (Shoulder immobilizer in place on right shoulder. Bandage in place. Bandage is dry and intact. Cooling pack in place. ) Peripheral Pulses: 1+: Radial (L), Radial (R), Posterior Tibial (L), Posterior Tibial (R), Dorsalis Pedis (L), Dorsalis Pedis (R) Skin: Warm, Dry, Intact Neurological: Cranial Nerves Intact (grossly) Neuro Extensive - Mental Status: Alert, Oriented x3, Normal Mood/Affect, Normal Cognition, Memory Intact Psychiatric: Alert, Normal Affect, Normal Mood Consult PN Assessment/Plan POD#: 0 Procedures: Procedures ASSAY OF BLOOD/URIC ACID (11/07/16) ASSAY OF ERYTHROPOIETIN (12/16/16) ASSAY OF FERRITIN (12/16/16) ASSAY OF IRON (12/16/16) ASSAY OF PREALBUMIN (09/02/17) ASSAY OF SERUM ALBUMIN (09/02/17) ASSAY OF TRANSFERRIN (12/16/16) AUTOMATED RETICULOCYTE COUNT (12/25/16) BL SMEAR W/DIFF WBC COUNT (12/25/16) C-REACTIVE PROTEIN (03/27/17) CARPAL TUNNEL SURGERY (12/26/16) CHEST X-RAY 2VW FRONTAL&LATL (12/17/16) COMPLETE CBC AUTOMATED (12/25/16) COMPLETE CBC W/AUTO DIFF WBC (09/02/17) COMPREHEN METABOLIC PANEL (12/16/16) METABOLIC PANEL TOTAL CA (09/02/17) MR-STAPH DNA AMP PROBE (03/11/17) PROTHROMBIN TIME (09/02/17) ROUTINE VENIPUNCTURE (09/02/17) THROMBOPLASTIN TIME PARTIAL (09/02/17) URINALYSIS AUTO W/O SCOPE (10/30/16) X-RAY EXAM CHEST 2 VIEWS (09/02/17) X-RAY EXAM OF WRIST (10/21/16) (1) S/p reverse total shoulder arthroplasty SNOMED Code(s): 804877256 Code(s): Z96.619 - PRESENCE OF UNSPECIFIED ARTIFICIAL SHOULDER JOINT Priority: High Current Visit: Yes Qualifiers: Laterality: right Qualified Code(s): Z96.611 - Presence of right artificial shoulder joint (2) Osteoarthritis SNOMED Code(s): 454188545 Code(s): M19.90 - UNSPECIFIED OSTEOARTHRITIS, UNSPECIFIED SITE Priority: High Current Visit: Yes Qualifiers: Osteoarthritis location: shoulder Osteoarthritis type: primary Laterality : right Qualified Code(s): M19.011 - Primary osteoarthritis, right shoulder (3) Emphysema of lung SNOMED Code(s): 43641457 Code(s): J43.9 - EMPHYSEMA, UNSPECIFIED Priority: Medium Current Visit: No Qualifiers: Emphysema type: unspecified Qualified Code(s): J43.9 - Emphysema, unspecified (4) Hypothyroidism SNOMED Code(s): 17382429 Code(s): E03.9 - HYPOTHYROIDISM, UNSPECIFIED Priority: Low Current Visit : No Qualifiers: Hypothyroidism type: unspecified Qualified Code(s): E03.9 - Hypothyroidism , unspecified (5) Leukocytosis SNOMED Code(s): 375865729 Code(s): D72.829 - ELEVATED WHITE BLOOD CELL COUNT, UNSPECIFIED Priority: Low Current Visit: No Qualifiers: Leukocytosis type: unspecified Qualified Code(s): D72.829 - Elevated white blood cell count, unspecified Problem List Initiated/Reviewed/Updated: Yes Plan: I/P: Acute: S/P right reverse total shoulder arthroplasty - post-operative day 0 -DVT prophylaxis and pain management per primary care team -PT/OT -IS/RT -Monitor oxygen saturation -Titrate oxygen as needed -Vital signs stable -Monitor labs -Pre-operative Hgb was 15.4 Osteoarthritis of right shoulder -Pain management per primary care team Chronic: Emphysema Thrombocytosis Hypothyroidism Plan: CM for discharge planning GI prophylaxis Home medications as indicated Other orders as listed above Routine AM labs He is a full code. His PCP is Daryl Rowland PA-C here at [facility] Thank you for allowing us to participate in the care of this patient!! Requesting Provider: Dr. Escobedo Date Consult Requested: 09/08/17 Reason for Consult: Post-operative medical care Patient History Reviewed: Yes Admission H&P Reviewed: Yes Time Spent (in minutes): 20
[2017-09-08] MEDS: Iodine/Sodium Iodide 2% Tincture 30 ML Bottle ONE ×2 (13:12→13:15)
[2017-09-08] MEDS: Vancomycin 1 GM SDV ONE ×3 (13:16→13:22)
[2017-09-08] MEDS ORDERED: Meperidine PF 50 MG/ML Syringe IVPUSH PRN (14:02)
[2017-09-08] MEDS ORDERED: fentaNYL 100 MCG/2 ML SDV IVPUSH PRN (14:02)
--- NOTE | 2017-09-08 14:09 | PCM.POSTAN ---
POST ANESTHESIA ASSESSMENT - MENTAL STATUS Mental Status: Alert, Oriented - VITAL SIGNS Pulse Rate: 78 SaO2: 99 Resp Rate: 17 Blood Pressure: 123/82 Temperature: 36.7 C - RESPIRATORY Respiratory Status: Respiratory Rate WNL, Airway Patent, O2 Saturation Stable, Supplemental Oxygen - CARDIOVASCULAR CV Status: Pulse Rate WNL, Blood Pressure Stable - GASTROINTESTINAL GI Status: No Symptoms - PAIN Pain Score: 0 - POST OP HYDRATION Hydration Status: Adequate & Stable
[2017-09-08] MEDS ORDERED: LORazepam 2 MG/ML SDV ONE (14:23)
[2017-09-08] MEDS: LORazepam 2 MG/ML SDV IVPUSH ONE ×2 (14:30→17:03)
--- NOTE | 2017-09-08 14:51 | PCM.SN ---
- Free Text/Narrative Note: Right Interscalene nerve block Date: 09/08/2017 Time Out: 1122 Start: 1122 Stop: 1132 Surgical Procedure: Right Reverse Total Shoulder arthroplasty Diagnosis: Right shoulder osteoarthritis Current Procedure: Right interscalene block under US guidance for postoperative pain control requested by Dr. Escobedo. Patient chart reviewed, risk/benefits discussed with patient, consent obtained. Patient positioned supine, monitors/alarms on, oxygen placed via nasal cannula at 2 LPM. IV sedation administered: Versed 2mg IV Right shoulder prepped with chloraprep x1. Sterile drapes placed. Under US guidance right subclavian artery visualized along with the right brachial plexus. Plexus followed cephalad up to C6 cricoid level, and area localized with 2mls of 1% lidocaine. 22gauge 2 inch stimiplex needle inserted under US and guided to brachial plexus with 0.44mV with stimulation of biceps noted. Stimulation abolished at 0.2mVs. 1ml of Normal Saline injected with loss of stimulation up to 0.7mA. Incremental injection of 5mls with negative aspiration prior to each injection of 0.5% ropivacaine with 1:200,000 epinephrine. Total volume=30mls. Patient tolerated procedure well. Refer to nurses notes for vital signs. Lisa Thorne CRNA in room for supervision. Rosendo Stevenson CRNA
--- NOTE | 2017-09-08 14:51 | CR ---
Right shoulder: Three fluoroscopic spot views were obtained utilizing C-arm device. Study shows operative procedure for right shoulder reverse prosthesis placement. Fluoroscopy time given as 3.6 seconds. Impression: 1. Procedural study as noted above. Diagnostic code #2
--- NOTE | 2017-09-08 14:51 | CR ---
Right shoulder: Single AP view of the right shoulder was obtained utilizing portable technique. Comparison: Prior operative exam performed earlier on same day (2:08 PM). Reverse prosthesis is seen within the right shoulder. Components are aligned. Soft tissue air is noted from the surgical procedure. Underlying bony structures are intact. Impression: 1. Satisfactory radiographic appearance of recently placed right shoulder prosthesis. Diagnostic code #2
[2017-09-08] MEDS: ceFAZolin 2 GM in Premix Bag 1 BAG IV SCH (18:17)
[2017-09-08] MEDS: Acetaminophen/oxyCODONE 325-5 MG Tab PO PRN (21:16)
[2017-09-08] MEDS: Famotidine 20 MG Tab PO SCH (21:18)
[2017-09-08] MEDS: Docusate Sodium 100 MG Cap PO SCH (21:18)
[2017-09-09] MEDS: ceFAZolin 2 GM in Premix Bag 1 BAG IV SCH ×2 (02:22→09:55)
[2017-09-09] MEDS: Acetaminophen/oxyCODONE 325-5 MG Tab PO PRN ×2 (02:33→10:00)
--- NOTE | 2017-09-09 06:38 | PCM.CONSN ---
- General Info Date of Service: 09/09/17 Admission Dx/Problem (Free Text): Admission Diagnosis/Problem Admission Diagnosis/Problem Osteoarthritis of shoulder Subjective Update: Into to see Nawaf. He is sitting up in bed do very well. He has urinated. Denies any complaints. No concerns. He has been walking multiple laps around the halls and has been doing well with PT/OT. We discussed his tobacco use. He reports he has stopped smoking for several weeks in preparation for his surgery. He states this has been going very well and he will continue not smoking. I discussed the [place] tobacco quit line with him as well as communicating with others when he has urges. His PCP would be an excellent resource for this if needed. He reports he does not want/need a nicotine patch while in our care or after discharge. Functional Status: Reports: Pain Controlled, Tolerating Diet, Ambulating, Urinating, Incentive Spirometry. Denies: New Symptoms - Review of Systems General: Reports: No Symptoms. Denies: Weakness HEENT: Reports: No Symptoms Pulmonary: Reports: No Symptoms. Denies: Shortness of Breath, Cough, Wheezing Cardiovascular: Reports: No Symptoms. Denies: Chest Pain, Palpitations, Dyspnea on Exertion Gastrointestinal: Reports: No Symptoms. Denies: Abdominal Pain, Constipation, Diarrhea, Nausea, Vomiting Genitourinary: Reports: No Symptoms Musculoskeletal: Reports: Shoulder Pain Skin: Reports: No Symptoms Neurological: Reports: No Symptoms Psychiatric: Reports: No Symptoms - Patient Data Vitals - Most Recent: Last Vital Signs Temp 98.1 F 09/09/17 00:03 Pulse 91 09/09/17 00:04 Resp 17 09/09/17 00:03 BP 104/71 09/09/17 00:03 Pulse Ox 92 L 09/09/17 00:04 Weight - Most Recent: 181 lb 6.4 oz I&O - Last 24 Hours: Intake & Output 09/08/17 09/08/17 09/09/17 14:59 22:59 06:59 Intake Total 300 1540 100 Balance 300 1540 100 Med Orders - Current: Current Medications Aspirin (Ecotrin) 325 mg PO DAILY [facility] Bisacodyl (Dulcolax) 5 mg PO DAILY PRN PRN Reason: Constipation Cholecalciferol (Vitamin D3) 5,000 units PO DAILY [facility] Cyclobenzaprine HCl (Flexeril) 10 mg PO TID PRN PRN Reason: Spasms Docusate Sodium (Colace) 100 mg PO BID [facility] Last Admin: 09/08/17 21:18 Dose: 100 mg Famotidine (Pepcid) 20 mg PO Q12H [facility] Last Admin: 09/08/17 21:18 Dose: 20 mg Cefazolin Sodium/Dextrose 2 gm (/ Premix) 50 mls @ 100 mls/hr IV Q8H [facility] Stop: 09/09/17 10:59 Last Admin: 09/09/17 02:22 Dose: 100 mls/hr Ketorolac Tromethamine (Toradol) 15 mg IVPUSH Q6H PRN PRN Reason: Pain Magnesium Hydroxide (Milk Of Magnesia) 30 ml PO BID PRN PRN Reason: Constipation Morphine Sulfate (Morphine) 2 mg IVPUSH Q2H PRN PRN Reason: Breakthrough Pain Ondansetron HCl (Zofran) 4 mg IVPUSH Q6H PRN PRN Reason: Nausea/Vomiting Oxycodone/Acetaminophen (Percocet 325-5 Mg) 1 - 2 tab PO Q4H PRN PRN Reason: Pain Last Admin: 09/09/17 02:33 Dose: 2 tab Senna (Senna) 8.6 mg PO BID PRN PRN Reason: Constipation Sodium Chloride (Saline Flush) 10 ml FLUSH ASDIRECTED PRN PRN Reason: Keep Vein Open Discontinued Medications Albuterol (Proventil Neb Soln) 2.5 mg NEB ONETIME [facility] Stop: 09/08/17 13:00 Last Admin: 09/08/17 11:40 Dose: 2.5 mg Bupivacaine HCl (Marcaine 0.25%) Confirm Administered Dose 30 ml .ROUTE .STK- MED ONE Stop: 09/08/17 10:54 Last Admin: 09/08/17 13:16 Dose: 30 ml Cefazolin Sodium (Ancef) Confirm Administered Dose 2 gm .ROUTE .STK-MED ONE Stop: 09/08/17 10:21 Last Admin: 09/08/17 13:14 Dose: 2 gm Cefazolin Sodium (Ancef) Confirm Administered Dose 2 gm .ROUTE .STK-MED ONE Stop: 09/08/17 10:54 Dexamethasone (Dexamethasone) Confirm Administered Dose 4 mg .ROUTE .STK-MED ONE Stop: 09/08/17 10:21 Diphenhydramine HCl (Benadryl) 25 mg IVPUSH Q4H PRN PRN Reason: Nausea Diphenhydramine HCl (Benadryl) 25 mg IVPUSH Q6H PRN PRN Reason: Pruritis Stop: 09/08/17 17:00 Epinephrine HCl (Adrenalin) Confirm Administered Dose 1 mg .ROUTE .STK-MED ONE Stop: 09/08/17 07:15 Fentanyl (Sublimaze) Confirm Administered Dose 100 mcg .ROUTE .STK-MED ONE Stop: 09/08/17 10:21 Fentanyl (Sublimaze) 50 mcg IVPUSH Q5M PRN PRN Reason: Pain Stop: 09/08/17 17:00 Lactated Ringer's (Ringers, Lactated) 1,000 mls @ 125 mls/hr IV ASDIRECTED [facility] Last Admin: 09/08/17 14:40 Dose: 125 mls/hr Lidocaine HCl (Xylocaine-Mpf 1%) Confirm Administered Dose 2 mls @ as directed .ROUTE .STK-MED ONE Stop: 09/08/17 11:25 Influenza Virus Vaccine (Pharmacy To Dose - Influenza Vaccine) 1 each IM ONETIME ONE Stop: 09/08/17 09:35 Influenza Virus Vaccine (Flulaval Quad [id number]) 60 mcg IM .ONCE ONE Stop: 09/08/17 09:46 Iodine (Iodine 2% Mild Tincture) Confirm Administered Dose 30 ml .ROUTE .STK- MED ONE Stop: 09/08/17 10:54 Last Admin: 09/08/17 13:12 Dose: 18 ml Lidocaine/Sodium Bicarbonate (Buffered Lidocaine 1% In Ns 8.4%) 0.25 ml IDERM ONETIME PRN PRN Reason: Prior to IV Start Stop: 09/08/17 18:00 Last Admin: 09/08/17 08:45 Dose: 0.25 ml Lorazepam (Ativan) 0.5 mg IVPUSH ONETIME ONE Stop: 09/08/17 14:30 Last Admin: 09/08/17 17:03 Dose: Not Given Lorazepam (Ativan) Confirm Administered Dose 2 mg .ROUTE .STK-MED ONE Stop: 09/08/17 14:24 Last Admin: 09/08/17 17:03 Dose: Not Given Meperidine HCl (Demerol) 12.5 mg IVPUSH ONETIME PRN PRN Reason: Shivering Stop: 09/08/17 17:00 Midazolam HCl (Versed 1 Mg/Ml) Confirm Administered Dose 2 mg .ROUTE .STK-MED ONE Stop: 09/08/17 10:21 Morphine Sulfate (Morphine) 2 mg IVPUSH Q2H PRN PRN Reason: Breakthrough Pain Naloxone HCl (Narcan) 0.1 mg IVPUSH Q5M PRN PRN Reason: Oversedation Ondansetron HCl (Zofran) Confirm Administered Dose 4 mg .ROUTE .STK-MED ONE Stop: 09/08/17 10:21 Ondansetron HCl (Zofran) 4 mg IVPUSH ONETIME PRN PRN Reason: Nausea/Vomiting Stop: 09/08/17 17:00 Propofol (Diprivan 20 Ml) Confirm Administered Dose 200 mg .ROUTE .STK-MED ONE Stop: 09/08/17 10:21 Ropivacaine (Naropin 0.5%) Confirm Administered Dose 30 ml .ROUTE .STK-MED ONE Stop: 09/08/17 07:15 Tranexamic Acid (Cyklokapron) Confirm Administered Dose 1,000 mg .ROUTE .STK- MED ONE Stop: 09/08/17 10:54 Last Admin: 09/08/17 13:22 Dose: 1,000 mg Vancomycin HCl (Vancomycin) Confirm Administered Dose 1 gm .ROUTE .STK-MED ONE Stop: 09/08/17 10:54 Last Admin: 09/08/17 13:22 Dose: 1 gm - Exam Quality Assessment: DVT Prophylaxis General: Alert, Oriented, Cooperative, No Acute Distress HEENT: Pupils Equal, Pupils Reactive, EOMI, Mucous Membr. Moist/[place] Neck: Supple, Trachea Midline, No JVD Lungs: Clear to Auscultation, Normal Respiratory Effort Cardiovascular: Regular Rate, Regular Rhythm GI/Abdominal Exam: Normal Bowel Sounds, Soft, Non-Tender, No Organomegaly, No Distention, No Abnormal Bruit, No Mass, Pelvis Stable (Male) Exam: Deferred Back Exam: Full Range of Motion Extremities: Normal Range of Motion, Non-Tender, No Pedal Edema, Normal Capillary Refill Peripheral Pulses: 2+: Radial (L), Radial (R), Posterior Tibial (L), Posterior Tibial (R), Dorsalis Pedis (L), Dorsalis Pedis (R) Skin: Warm, Dry, Intact Wound/Incisions: Dressing Dry and Intact, No Drainage Neurological: No New Focal Deficit Psy/Mental Status: Alert, Normal Affect, Normal Mood Consult PN Assessment/Plan POD#: 1 Procedures: Procedures ASSAY OF BLOOD/URIC ACID (11/07/16) ASSAY OF ERYTHROPOIETIN (12/16/16) ASSAY OF FERRITIN (12/16/16) ASSAY OF IRON (12/16/16) ASSAY OF PREALBUMIN (09/02/17) ASSAY OF SERUM ALBUMIN (09/02/17) ASSAY OF TRANSFERRIN (12/16/16) AUTOMATED RETICULOCYTE COUNT (12/25/16) BL SMEAR W/DIFF WBC COUNT (12/25/16) C-REACTIVE PROTEIN (03/27/17) CARPAL TUNNEL SURGERY (12/26/16) CHEST X-RAY 2VW FRONTAL&LATL (12/17/16) COMPLETE CBC AUTOMATED (12/25/16) COMPLETE CBC W/AUTO DIFF WBC (09/02/17) COMPREHEN METABOLIC PANEL (12/16/16) METABOLIC PANEL TOTAL CA (09/02/17) MR-STAPH DNA AMP PROBE (03/11/17) PROTHROMBIN TIME (09/02/17) ROUTINE VENIPUNCTURE (09/02/17) THROMBOPLASTIN TIME PARTIAL (09/02/17) URINALYSIS AUTO W/O SCOPE (10/30/16) X-RAY EXAM CHEST 2 VIEWS (09/02/17) X-RAY EXAM OF WRIST (10/21/16) (1) S/p reverse total shoulder arthroplasty SNOMED Code(s): 388060279 Code(s): Z96.619 - PRESENCE OF UNSPECIFIED ARTIFICIAL SHOULDER JOINT Priority: High Current Visit: Yes Qualifiers: Laterality: right Qualified Code(s): Z96.611 - Presence of right artificial shoulder joint (2) Osteoarthritis SNOMED Code(s): 020682286 Code(s): M19.90 - UNSPECIFIED OSTEOARTHRITIS, UNSPECIFIED SITE Priority: High Current Visit: Yes Qualifiers: Osteoarthritis location: shoulder Osteoarthritis type: primary Laterality : right Qualified Code(s): M19.011 - Primary osteoarthritis, right shoulder (3) Emphysema of lung SNOMED Code(s): 14905379 Code(s): J43.9 - EMPHYSEMA, UNSPECIFIED Priority: Medium Current Visit: No Qualifiers: Emphysema type: unspecified Qualified Code(s): J43.9 - Emphysema, unspecified (4) Hypothyroidism SNOMED Code(s): 08910447 Code(s): E03.9 - HYPOTHYROIDISM, UNSPECIFIED Priority: Low Current Visit : No Qualifiers: Hypothyroidism type: unspecified Qualified Code(s): E03.9 - Hypothyroidism , unspecified (5) Leukocytosis SNOMED Code(s): 110887811 Code(s): D72.829 - ELEVATED WHITE BLOOD CELL COUNT, UNSPECIFIED Priority: Low Current Visit: No Qualifiers: Leukocytosis type: unspecified Qualified Code(s): D72.829 - Elevated white blood cell count, unspecified Problem List Initiated/Reviewed/Updated: Yes Plan: I/P: Acute: S/P right reverse total shoulder arthroplasty - post-operative day 1 -DVT prophylaxis and pain management per primary care team -PT/OT -IS/RT -Monitor oxygen saturation -Titrate oxygen as needed - no oxygen currently -Vital signs stable -Monitor labs -Pre-operative Hgb was 15.4, now 12.9 Osteoarthritis of right shoulder -Pain management per primary care team Chronic: Emphysema Thrombocytosis Hypothyroidism Plan: CM for discharge planning GI prophylaxis Home medications as indicated Other orders as listed above Routine AM labs He is a full code. His PCP is Daryl Rowland PA-C here at [facility] From a hospitalist standpoint the patient is doing well and is cleared for discharge pending primary team evaluation and agreement. Thank you for allowing us to participate in the care of this patient!!
[2017-09-09] MEDS: Famotidine 20 MG Tab PO SCH (08:22)
[2017-09-09] MEDS: Docusate Sodium 100 MG Cap PO SCH (08:22)
--- NOTE | 2017-09-09 08:34 | PCM.SURGPN ---
- General Info Date of Service: 09/09/17 POD#: 1 Functional Status: Reports: Pain Controlled, Tolerating Diet, Ambulating, Urinating, Incentive Spirometry - Review of Systems Musculoskeletal: Reports: Other (The pt states he is doing well and prepared for discharge to home.) - Patient Data Vitals - Most Recent: Last Vital Signs Temp 98.2 F 09/09/17 03:58 Pulse 86 09/09/17 03:58 Resp 16 09/09/17 03:58 BP 110/67 09/09/17 03:58 Pulse Ox 92 L 09/09/17 03:58 Weight - Most Recent: 181 lb 6.4 oz I&O - Last 24 Hours: Intake & Output 09/08/17 09/09/17 09/09/17 22:59 06:59 14:59 Intake Total 5139 221 3576 Output Total 700 Balance 1540 100 690 Lab Results Last 24 Hrs: Laboratory Results - last 24 hr 09/09/17 09/09/17 Range/Units 06:00 06:00 WBC 16.16 H (4.23-9.07) K/mm3 RBC 4.11 L (4.63-6.08) M/mm3 Hgb 12.9 L (13.7-17.5) gm/L Hct 39.0 L (40.1-51.0) % MCV 94.9 H (79.0-92.2) fl MCH 31.4 (25.7-32.2) pg MCHC 33.1 (32.2-35.5) g/dl RDW Std Deviation 49.0 H (35.1-43.9) fL Plt Count 256 (163-337) K/mm3 MPV 9.6 (9.4-12.3) fl Sodium 138 (136-145) mEq/L Potassium 3.6 (3.5-5.1) mEq/L Chloride 104 (98-107) mEq/L Carbon Dioxide 26 (21-32) mEq/L Anion Gap 11.6 (5-15) BUN 11 (7-18) mg/dL Creatinine 1.2 (0.7-1.3) mg/dL Est Cr Clr Drug Dosing 57.66 mL/min Estimated GFR (MDRD) > 60 (>60) mL/min BUN/Creatinine Ratio 9.2 L (14-18) Glucose 99 (74-106) mg/dL Calcium 8.2 L (8.5-10.1) mg/dL Total Bilirubin 0.5 (0.2-1.0) mg/dL AST 10 L (15-37) U/L ALT 13 L (16-63) U/L Alkaline Phosphatase 93 (46-116) U/L Total Protein 6.3 L (6.4-8.2) g/dl Albumin 3.1 L (3.4-5.0) g/dl Globulin 3.2 gm/dL Albumin/Globulin Ratio 1.0 (1-2) Med Orders - Current: Current Medications Aspirin (Ecotrin) 325 mg PO DAILY [facility] Last Admin: 09/09/17 08:21 Dose: 325 mg Bisacodyl (Dulcolax) 5 mg PO DAILY PRN PRN Reason: Constipation Cholecalciferol (Vitamin D3) 5,000 units PO DAILY [facility] Last Admin: 09/09/17 08:21 Dose: 5,000 units Cyclobenzaprine HCl (Flexeril) 10 mg PO TID PRN PRN Reason: Spasms Docusate Sodium (Colace) 100 mg PO BID [facility] Last Admin: 09/09/17 08:22 Dose: 100 mg Famotidine (Pepcid) 20 mg PO Q12H [facility] Last Admin: 09/09/17 08:22 Dose: 20 mg Cefazolin Sodium/Dextrose 2 gm (/ Premix) 50 mls @ 100 mls/hr IV Q8H [facility] Stop: 09/09/17 10:59 Last Admin: 09/09/17 02:22 Dose: 100 mls/hr Ketorolac Tromethamine (Toradol) 15 mg IVPUSH Q6H PRN PRN Reason: Pain Magnesium Hydroxide (Milk Of Magnesia) 30 ml PO BID PRN PRN Reason: Constipation Morphine Sulfate (Morphine) 2 mg IVPUSH Q2H PRN PRN Reason: Breakthrough Pain Ondansetron HCl (Zofran) 4 mg IVPUSH Q6H PRN PRN Reason: Nausea/Vomiting Oxycodone/Acetaminophen (Percocet 325-5 Mg) 1 - 2 tab PO Q4H PRN PRN Reason: Pain Last Admin: 09/09/17 02:33 Dose: 2 tab Senna (Senna) 8.6 mg PO BID PRN PRN Reason: Constipation Sodium Chloride (Saline Flush) 10 ml FLUSH ASDIRECTED PRN PRN Reason: Keep Vein Open Discontinued Medications Albuterol (Proventil Neb Soln) 2.5 mg NEB ONETIME [facility] Stop: 09/08/17 13:00 Last Admin: 09/08/17 11:40 Dose: 2.5 mg Bupivacaine HCl (Marcaine 0.25%) Confirm Administered Dose 30 ml .ROUTE .STK- MED ONE Stop: 09/08/17 10:54 Last Admin: 09/08/17 13:16 Dose: 30 ml Cefazolin Sodium (Ancef) Confirm Administered Dose 2 gm .ROUTE .STK-MED ONE Stop: 09/08/17 10:21 Last Admin: 09/08/17 13:14 Dose: 2 gm Cefazolin Sodium (Ancef) Confirm Administered Dose 2 gm .ROUTE .STK-MED ONE Stop: 09/08/17 10:54 Dexamethasone (Dexamethasone) Confirm Administered Dose 4 mg .ROUTE .STK-MED ONE Stop: 09/08/17 10:21 Diphenhydramine HCl (Benadryl) 25 mg IVPUSH Q4H PRN PRN Reason: Nausea Diphenhydramine HCl (Benadryl) 25 mg IVPUSH Q6H PRN PRN Reason: Pruritis Stop: 09/08/17 17:00 Epinephrine HCl (Adrenalin) Confirm Administered Dose 1 mg .ROUTE .STK-MED ONE Stop: 09/08/17 07:15 Fentanyl (Sublimaze) Confirm Administered Dose 100 mcg .ROUTE .STK-MED ONE Stop: 09/08/17 10:21 Fentanyl (Sublimaze) 50 mcg IVPUSH Q5M PRN PRN Reason: Pain Stop: 09/08/17 17:00 Lactated Ringer's (Ringers, Lactated) 1,000 mls @ 125 mls/hr IV ASDIRECTED [facility] Last Admin: 09/08/17 14:40 Dose: 125 mls/hr Lidocaine HCl (Xylocaine-Mpf 1%) Confirm Administered Dose 2 mls @ as directed .ROUTE .STK-MED ONE Stop: 09/08/17 11:25 Influenza Virus Vaccine (Pharmacy To Dose - Influenza Vaccine) 1 each IM ONETIME ONE Stop: 09/08/17 09:35 Influenza Virus Vaccine (Flulaval Quad [id number]) 60 mcg IM .ONCE ONE Stop: 09/08/17 09:46 Iodine (Iodine 2% Mild Tincture) Confirm Administered Dose 30 ml .ROUTE .STK- MED ONE Stop: 09/08/17 10:54 Last Admin: 09/08/17 13:12 Dose: 18 ml Lidocaine/Sodium Bicarbonate (Buffered Lidocaine 1% In Ns 8.4%) 0.25 ml IDERM ONETIME PRN PRN Reason: Prior to IV Start Stop: 09/08/17 18:00 Last Admin: 09/08/17 08:45 Dose: 0.25 ml Lorazepam (Ativan) 0.5 mg IVPUSH ONETIME ONE Stop: 09/08/17 14:30 Last Admin: 09/08/17 17:03 Dose: Not Given Lorazepam (Ativan) Confirm Administered Dose 2 mg .ROUTE .STK-MED ONE Stop: 09/08/17 14:24 Last Admin: 09/08/17 17:03 Dose: Not Given Meperidine HCl (Demerol) 12.5 mg IVPUSH ONETIME PRN PRN Reason: Shivering Stop: 09/08/17 17:00 Midazolam HCl (Versed 1 Mg/Ml) Confirm Administered Dose 2 mg .ROUTE .STK-MED ONE Stop: 09/08/17 10:21 Morphine Sulfate (Morphine) 2 mg IVPUSH Q2H PRN PRN Reason: Breakthrough Pain Naloxone HCl (Narcan) 0.1 mg IVPUSH Q5M PRN PRN Reason: Oversedation Ondansetron HCl (Zofran) Confirm Administered Dose 4 mg .ROUTE .STK-MED ONE Stop: 09/08/17 10:21 Ondansetron HCl (Zofran) 4 mg IVPUSH ONETIME PRN PRN Reason: Nausea/Vomiting Stop: 09/08/17 17:00 Propofol (Diprivan 20 Ml) Confirm Administered Dose 200 mg .ROUTE .STK-MED ONE Stop: 09/08/17 10:21 Ropivacaine (Naropin 0.5%) Confirm Administered Dose 30 ml .ROUTE .STK-MED ONE Stop: 09/08/17 07:15 Tranexamic Acid (Cyklokapron) Confirm Administered Dose 1,000 mg .ROUTE .STK- MED ONE Stop: 09/08/17 10:54 Last Admin: 09/08/17 13:22 Dose: 1,000 mg Vancomycin HCl (Vancomycin) Confirm Administered Dose 1 gm .ROUTE .STK-MED ONE Stop: 09/08/17 10:54 Last Admin: 09/08/17 13:22 Dose: 1 gm - Exam Wound/Incisions: Dressing Dry and Intact General: Alert, Cooperative, No Acute Distress Lungs: Normal Respiratory Effort Extremities: Other (NVS intact for RUE. Active elbow, wrist, hand motion on the right noted.) - Problem List Review Problem List Initiated/Reviewed/Updated: Yes - My Orders Last 24 Hours: Active Orders 24 hr Category Date Time Status Cooling Warming Measures [RC] ASDIRECTED Care 09/08/17 13:59 Inactive Notify Provider [RC] ASDIRECTED Care 09/08/17 13:59 Active RT Aerosol Therapy [RC] ASDIRECTED Care 09/08/17 10:54 Active Ready for Discharge [RC] PER UNIT ROUTINE Care 09/09/17 08:32 Active Vital Signs [RC] Q15M Care 09/08/17 14:00 Inactive Regular Diet [DIET] Diet 09/08/17 Lunch Active Aspirin [Ecotrin] Med 09/09/17 09:00 Active 325 mg PO DAILY Cholecalciferol (Vitamin D3) [Vitamin D3] Med 09/09/17 09:00 Active 5,000 units PO DAILY Docusate Sodium [Colace] Med 09/08/17 21:00 Active 100 mg PO BID Famotidine [Pepcid] Med 09/08/17 21:00 Active 20 mg PO Q12H Morphine Med 09/08/17 11:19 Active 2 mg IVPUSH Q2H PRN ceFAZolin [Ancef] 2 gm Med 09/08/17 18:30 Active Premix Bag 1 bag IV Q8H Medication Orders Aspirin (Ecotrin) 325 mg PO DAILY [facility] Last Admin: 09/09/17 08:21 Dose: 325 mg Bisacodyl (Dulcolax) 5 mg PO DAILY PRN PRN Reason: Constipation Cholecalciferol (Vitamin D3) 5,000 units PO DAILY [facility] Last Admin: 09/09/17 08:21 Dose: 5,000 units Cyclobenzaprine HCl (Flexeril) 10 mg PO TID PRN PRN Reason: Spasms Docusate Sodium (Colace) 100 mg PO BID [facility] Last Admin: 09/09/17 08:22 Dose: 100 mg Admin: 09/08/17 21:18 Dose: 100 mg Famotidine (Pepcid) 20 mg PO Q12H [facility] Last Admin: 09/09/17 08:22 Dose: 20 mg Admin: 09/08/17 21:18 Dose: 20 mg Cefazolin Sodium/Dextrose 2 gm (/ Premix) 50 mls @ 100 mls/hr IV Q8H [facility] Stop: 09/09/17 10:59 Last Admin: 09/09/17 02:22 Dose: 100 mls/hr Infusion: 09/08/17 18:47 Dose: 100 mls/hr Admin: 09/08/17 18:17 Dose: 100 mls/hr Ketorolac Tromethamine (Toradol) 15 mg IVPUSH Q6H PRN PRN Reason: Pain Magnesium Hydroxide (Milk Of Magnesia) 30 ml PO BID PRN PRN Reason: Constipation Morphine Sulfate (Morphine) 2 mg IVPUSH Q2H PRN PRN Reason: Breakthrough Pain Ondansetron HCl (Zofran) 4 mg IVPUSH Q6H PRN PRN Reason: Nausea/Vomiting Oxycodone/Acetaminophen (Percocet 325-5 Mg) 1 - 2 tab PO Q4H PRN PRN Reason: Pain Last Admin: 09/09/17 02:33 Dose: 2 tab Admin: 09/08/17 21:16 Dose: 2 tab Senna (Senna) 8.6 mg PO BID PRN PRN Reason: Constipation Sodium Chloride (Saline Flush) 10 ml FLUSH ASDIRECTED PRN PRN Reason: Keep Vein Open - Assessment Assessment (Free Text/Narrative):: POD#1 - right reverse TSA - Plan Plan (Free Text/Narrative):: 1. Hgb 12.9 today. 2. Discharge to home today. 3. Outpatient therapy ordered. 4. Follow-up at outpatient Clinic next week. 5. Smoking cessation was again discussed and pt states he is not smoking at this time. The pt's case was discussed with Dr. Escobedo.
[2017-09-09] MEDS ORDERED: Cholecalciferol (Vitamin D3) 1,000 Unit Tab PO SCH (09:00)
[2017-09-09] MEDS ORDERED: Aspirin 325 MG Tab.EC PO SCH (09:00)
[2017-09-09 11:21] VITALS: BP 119/74
--- NOTE | 2017-09-11 06:46 | PCM.DCSUM1 ---
Discharge Summary - Hospital Course Brief History: Rony is a 57 yo male who underwent right reverse TSA with Dr. Escobedo on 09-08-2017. The procedure was completed under general anesthesia with regional block. The pt tolerated the procedure well and was admitted to the Medical-Surgical Unit. The pt received Ancef brendan-operatively. He participated in P.T. and O.T. and progressed well. The pt's surgical wound was dressed with a Mepilex dressing and remained clean and dry. On POD#1, the pt was started on 325mg ASA for VTE prophylaxis. TEDs and SCDs were also ordered. On POD#1, the pt's hemoglobin was 12.9. Medical management was provided by the Hospitalist service and the pt's hospital course was uneventful. On POD#1, the pt was deemed appropriate for discharge to home with his family. - Discharge Data Discharge Date: 09/09/17 Discharge Disposition: Home, Self-Care 01 Condition: Good - Patient Summary/Data Consults: Consultations 09/08/17 07:02 OT Evaluation and Treatment [CONS] Routine PT Evaluation and Treatment [CONS] Routine 09/08/17 07:03 Consult to Physician [CONS] Routine - Patient Instructions Diet: Usual Diet as Tolerated Activity: Apply Ice, As Tolerated, Elevate Extremity Driving: Do Not Drive Showering/Bathing: May Shower Wound/Incision Care: Keep Operative Site/Wound Site Clean and Dry, Do NOT Change Dressing Notify Provider of: Fever, Increased Pain, Swelling and Redness, Drainage, Nausea and/or Vomiting Other/Special Instructions: Please get up and moving around every hour while awake. This helps to prevent blood clots. Please take 325mg aspirin twice daily - this also helps to prevent blood clots. The medication is being used for blood clot prevention and not for pain control, so please use the medication daily as directed. Please wear the ELIZABETH hose during the day and you may remove them at night. Please schedule for physical or occupational therapy. Complete the therapy exercises and stretches that were instructed in the Hospital. Please use the pain medication and muscle relaxant as needed. The medication may cause drowsiness and/or constipation. You could use a stool softener like docusate sodium or Colace 100mg twice daily and/or a laxative like Miralax daily for constipation. Contact your primary care provider for further instructions if you are constipated. Please schedule an appointment with your primary care provider for 'routine post-op care'. Use the incentive spirometer often. Please place ice to the shoulder often. Please elevate the limb to decrease swelling. Keep the Mepilex dressing in place until follow-up. Please call [phone] with questions or concerns. - Discharge Plan Prescriptions/Med Rec: Acetaminophen/oxyCODONE [Percocet 325-5 MG] 1 - 2 tab PO Q6H PRN #60 tablet PRN Reason: Pain Aspirin [Ecotrin] 325 mg PO BID #84 tab.ec Cyclobenzaprine [Flexeril] 10 mg PO TID PRN #40 tablet PRN Reason: Spasms Home Medications: Home Meds Acetaminophen [Tylenol] 650 mg PO Q4H PRN #0 04/17/17 [Rx] Cholecalciferol (Vitamin D3) [Vitamin D3] 5,000 unit PO DAILY 09/05/17 [History] Acetaminophen/oxyCODONE [Percocet 325-5 MG] 1 - 2 tab PO Q6H PRN #60 tablet 12/22 [Rx] Aspirin [Ecotrin] 325 mg PO BID #84 tab.ec 09/09/17 [Rx] Bisacodyl [Dulcolax] 5 mg PO DAILY PRN tablet 09/09/17 [Rx] Cyclobenzaprine [Flexeril] 10 mg PO TID PRN #40 tablet 09/09/17 [Rx] Docusate Sodium [Colace] 100 mg PO BID cap 09/09/17 [Rx] Famotidine [Pepcid] 20 mg PO Q12H tablet 09/09/17 [Rx] Magnesium Hydroxide [Milk of Magnesia] 30 ml PO BID PRN cup 09/09/17 [Rx] Sennosides [Senna] 8.6 mg PO BID PRN tablet 09/09/17 [Rx] Referrals: Daryl Rowland PA-C [Primary Care Provider] - 09/17/17 9:00 am Renu Arias PA-C [Physician Retail [employer] Restaurant Associate] - (please follow up for your appointments scheduled with Renu Arias on 09/17/17 at 1:15 and 09/23/17 at 1:45) - Patient Data Vitals - Most Recent: Last Vital Signs Temp 98.4 F 09/09/17 11:08 Pulse 80 09/09/17 11:08 Resp 16 09/09/17 03:58 BP 119/74 09/09/17 11:08 Pulse Ox 94 L 09/09/17 11:08 Weight - Most Recent: 181 lb 6.4 oz Med Orders - Current: Current Medications Discontinued Medications Albuterol (Proventil Neb Soln) 2.5 mg NEB ONETIME [facility] Stop: 09/08/17 13:00 Last Admin: 09/08/17 11:40 Dose: 2.5 mg Aspirin (Ecotrin) 325 mg PO DAILY [facility] Last Admin: 09/09/17 08:21 Dose: 325 mg Bisacodyl (Dulcolax) 5 mg PO DAILY PRN PRN Reason: Constipation Bupivacaine HCl (Marcaine 0.25%) Confirm Administered Dose 30 ml .ROUTE .STK- MED ONE Stop: 09/08/17 10:54 Last Admin: 09/08/17 13:16 Dose: 30 ml Cefazolin Sodium (Ancef) Confirm Administered Dose 2 gm .ROUTE .STK-MED ONE Stop: 09/08/17 10:21 Last Admin: 09/08/17 13:14 Dose: 2 gm Cefazolin Sodium (Ancef) Confirm Administered Dose 2 gm .ROUTE .STK-MED ONE Stop: 09/08/17 10:54 Cholecalciferol (Vitamin D3) 5,000 units PO DAILY [facility] Last Admin: 09/09/17 08:21 Dose: 5,000 units Cyclobenzaprine HCl (Flexeril) 10 mg PO TID PRN PRN Reason: Spasms Last Admin: 09/09/17 13:26 Dose: 10 mg Dexamethasone (Dexamethasone) Confirm Administered Dose 4 mg .ROUTE .STK-MED ONE Stop: 09/08/17 10:21 Diphenhydramine HCl (Benadryl) 25 mg IVPUSH Q4H PRN PRN Reason: Nausea Diphenhydramine HCl (Benadryl) 25 mg IVPUSH Q6H PRN PRN Reason: Pruritis Stop: 09/08/17 17:00 Docusate Sodium (Colace) 100 mg PO BID [facility] Last Admin: 09/09/17 08:22 Dose: 100 mg Epinephrine HCl (Adrenalin) Confirm Administered Dose 1 mg .ROUTE .STK-MED ONE Stop: 09/08/17 07:15 Famotidine (Pepcid) 20 mg PO Q12H [facility] Last Admin: 09/09/17 08:22 Dose: 20 mg Fentanyl (Sublimaze) Confirm Administered Dose 100 mcg .ROUTE .STK-MED ONE Stop: 09/08/17 10:21 Fentanyl (Sublimaze) 50 mcg IVPUSH Q5M PRN PRN Reason: Pain Stop: 09/08/17 17:00 Lactated Ringer's (Ringers, Lactated) 1,000 mls @ 125 mls/hr IV ASDIRECTED [facility] Last Admin: 09/08/17 14:40 Dose: 125 mls/hr Cefazolin Sodium/Dextrose 2 gm (/ Premix) 50 mls @ 100 mls/hr IV Q8H [facility] Stop: 09/09/17 10:59 Last Admin: 09/09/17 09:55 Dose: 100 mls/hr Lidocaine HCl (Xylocaine-Mpf 1%) Confirm Administered Dose 2 mls @ as directed .ROUTE .STK-MED ONE Stop: 09/08/17 11:25 Influenza Virus Vaccine (Pharmacy To Dose - Influenza Vaccine) 1 each IM ONETIME ONE Stop: 09/08/17 09:35 Last Admin: 09/09/17 11:18 Dose: Not Given Influenza Virus Vaccine (Flulaval Quad [id number]) 60 mcg IM .ONCE ONE Stop: 09/08/17 09:46 Last Admin: 09/09/17 11:18 Dose: Not Given Iodine (Iodine 2% Mild Tincture) Confirm Administered Dose 30 ml .ROUTE .STK- MED ONE Stop: 09/08/17 10:54 Last Admin: 09/08/17 13:12 Dose: 18 ml Ketorolac Tromethamine (Toradol) 15 mg IVPUSH Q6H PRN PRN Reason: Pain Last Admin: 09/09/17 13:26 Dose: 15 mg Lidocaine/Sodium Bicarbonate (Buffered Lidocaine 1% In Ns 8.4%) 0.25 ml IDERM ONETIME PRN PRN Reason: Prior to IV Start Stop: 09/08/17 18:00 Last Admin: 09/08/17 08:45 Dose: 0.25 ml Lorazepam (Ativan) 0.5 mg IVPUSH ONETIME ONE Stop: 09/08/17 14:30 Last Admin: 09/08/17 17:03 Dose: Not Given Lorazepam (Ativan) Confirm Administered Dose 2 mg .ROUTE .STK-MED ONE Stop: 09/08/17 14:24 Last Admin: 09/08/17 17:03 Dose: Not Given Magnesium Hydroxide (Milk Of Magnesia) 30 ml PO BID PRN PRN Reason: Constipation Meperidine HCl (Demerol) 12.5 mg IVPUSH ONETIME PRN PRN Reason: Shivering Stop: 09/08/17 17:00 Midazolam HCl (Versed 1 Mg/Ml) Confirm Administered Dose 2 mg .ROUTE .STK-MED ONE Stop: 09/08/17 10:21 Morphine Sulfate (Morphine) 2 mg IVPUSH Q2H PRN PRN Reason: Breakthrough Pain Morphine Sulfate (Morphine) 2 mg IVPUSH Q2H PRN PRN Reason: Breakthrough Pain Naloxone HCl (Narcan) 0.1 mg IVPUSH Q5M PRN PRN Reason: Oversedation Ondansetron HCl (Zofran) 4 mg IVPUSH Q6H PRN PRN Reason: Nausea/Vomiting Ondansetron HCl (Zofran) Confirm Administered Dose 4 mg .ROUTE .STK-MED ONE Stop: 09/08/17 10:21 Ondansetron HCl (Zofran) 4 mg IVPUSH ONETIME PRN PRN Reason: Nausea/Vomiting Stop: 09/08/17 17:00 Oxycodone/Acetaminophen (Percocet 325-5 Mg) 1 - 2 tab PO Q4H PRN PRN Reason: Pain Last Admin: 09/09/17 10:00 Dose: 2 tab Propofol (Diprivan 20 Ml) Confirm Administered Dose 200 mg .ROUTE .STK-MED ONE Stop: 09/08/17 10:21 Ropivacaine (Naropin 0.5%) Confirm Administered Dose 30 ml .ROUTE .STK-MED ONE Stop: 09/08/17 07:15 Senna (Senna) 8.6 mg PO BID PRN PRN Reason: Constipation Sodium Chloride (Saline Flush) 10 ml FLUSH ASDIRECTED PRN PRN Reason: Keep Vein Open Tranexamic Acid (Cyklokapron) Confirm Administered Dose 1,000 mg .ROUTE .STK- MED ONE Stop: 09/08/17 10:54 Last Admin: 09/08/17 13:22 Dose: 1,000 mg Vancomycin HCl (Vancomycin) Confirm Administered Dose 1 gm .ROUTE .[facility]-MED ONE Stop: 09/08/17 10:54 Last Admin: 09/08/17 13:22 Dose: 1 gm *Q Meaningful Use (DIS) - VTE *Q VTE Criteria *Q: - Stroke *Q Stroke Criteria *Q: - AMI *Q AMI Criteria *Q:
--- NOTE | 2017-09-15 21:55 | PCM.OPNOTE ---
- General Post-Op/Procedure Note Date of Surgery/Procedure: 09/08/17 Operative Procedure(s): right reverse total shoulder arthroplasty Pre Op Diagnosis: right shoulder rotator cuff tear arthropathy Post-Op Diagnosis: Same Anesthesia Technique: General ET Tube, Regional Block Primary Surgeon: Duke Escobedo Anesthesia Provider: Rosendo Stevenson House Mover Supervisor: Renu Arias House Mover Supervisor: Haydee Bermudez EBL in mLs: 150 Complications: None Condition: Good
--- NOTE | 2017-09-15 23:14 | OR ---
DATE OF OPERATION: 09/08/2017 SURGEON: Duke Escobedo MD OPERATIVE PROCEDURE: Right reverse total shoulder arthroplasty. PREOPERATIVE DIAGNOSIS: Right shoulder rotator cuff tear arthropathy. POSTOPERATIVE DIAGNOSIS: Right shoulder rotator cuff tear arthropathy. ANESTHESIA TECHNIQUE: General endotracheal intubation with regional interscalene block. ANESTHESIA PROVIDER: Rosendo Stevenson. ASSISTANTS: Renu Arias PA-C, and Haydee Bermudez LPN. ESTIMATED BLOOD LOSS: 150 mL. COMPLICATIONS: None. CONDITION: Stable. IMPLANTS: 1. Arthrex size 11 humeral. 2. Arthrex 36 mm glenohumeral component with a +6 mm polyethylene. 3. A 36 mm +4 Arthrex Glenosphere. 4. Small Arthrex glenoid baseplate. 5. Two peripheral locking screws Arthrex and central compression screw. DESCRIPTION OF PROCEDURE: Patient was identified in the preop holding area. Proper site was marked and identified by the surgeon. The patient was taken back to the operating theater where after adequate anesthesia, the patient was placed in supine on a radiolucent flat top table. The right shoulder was then sterilely prepped and draped in the usual sterile fashion. OR time-out was performed. The patient received 2 grams of IV Ancef. The patient was then placed in a reverse Trendelenburg position. Standard deltopectoral incision was made. The cephalic vein was identified. The interval was obtained. This was taken down to the clavipectoral fascia. Clavipectoral fascia was incised. An [employer] retractor was then used to retract the conjoined tendon. The subdeltoid adhesions were lysed at this time. At this time, the anterior humeral circumflex vessels were identified, were then stick tied using 0 Vicryl stick tie. The biceps tendon was then identified. A #2 FiberWire was used for subpectoral tenodesis. The biceps tendon was then cut and Allis clamp was placed on the end of the biceps tendon and a Caballero scissors was used to release the interval all the way back up to the level of the glenoid and the biceps tendon was then removed. At this time, the subscapularis tendon was peeled off the lesser tuberosity and the excess capsule was removed from the inferior portion of the neck. At this time, the humeral head was directly visualized. The patient had the teres minor intact along with just a small portion of the infraspinatus. Guide pin was placed down the canal. The cutting guide for the humerus was placed and it was cut in roughly 30 degrees of retroversion. It was found to be an adequate cut at this time. At this time, attention was turned to the glenoid. Fukuda retractor was placed posteriorly on the glenoid and Hohmann was placed anteriorly. Resection of the capsule as well as remaining labrum was done at this time. The patient at this time had central guide pin placed in a center- center position of the glenoid. The central reamer was then reamed and it was found to be in adequate position. At this time, a small peripheral reamer was then used and it was found to be in adequate position. At this time, the central guide pin was then removed and a small glenoid baseplate was impacted into place. The central compression screw was then placed and then 2 peripheral locking screws were placed and was found to be in adequate position. At this time, attention was turned back to the humerus. Starting with a size 7 broach, I was able to broach up to a size 11 which was found to be rotationally and vertically stable and broached this in roughly 30 degrees of retroversion. At this time, the trial components were then placed, and a 36+ 4 Glenosphere was impacted into place after checking the periphery to make sure no bone or soft tissue would hinder it. This was then impacted into place and the trial components were then placed. A +6 polyethylene was trialed. Patient had good tension on the deltoid conjoined tendon with no significant signs of instability throughout range of motion. The patient had full range of motion. At this time, the trial components were removed. A 36 mm 135 degree along with 11 mm humeral stem was then constructed on the back table with a +6 polyethylene. This was then impacted into place in the humerus and then, shoulder was relocated at this time. I had good check test with maybe a millimeter opening and had full range of motion without signs of instability. At this time, 1 liter of dilute Betadine solution was irrigated through the shoulder along with 3 L pulse lavage irrigation with Ancef. The deltopectoral interval was then tagged using FiberWire. A 2-0 Vicryl was used subcutaneously and Prineo was used for the skin. The patient had a sterile soft dressing applied and was sent to PACU in stable condition. Tolerated procedure well. OPERATION PERFORMED: ANESTHESIA: MMODAL /[id number]
== END 2017-09-09 13:41 | disposition home or self-care (01) | DRG 483 ==
LOC: JD.MS 09-08 08:16
PROVIDERS: ADMIT Orthopaedic Surgery; ATTEND Orthopaedic Surgery
PROC: 0RRJ0JZ Replacement of Right Shoulder Joint with Synthetic Substitute, Open Approach (ICD-10-PCS; principal; 2017-09-08)
DX: M19.011 Primary osteoarthritis, right shoulder (principal); H54.7 Unspecified visual loss; Z96.612 Presence of left artificial shoulder joint; Z87.891 Personal history of nicotine dependence
CPT/HCPCS: 01638; 36415; 64415; 73020-26-RT; 73020-RT; 76000; 76000-26; 80053; 85027; 87641; 94640; 97110-GP; 97161-GP; 97165-GO; 97535-GO; A9270-GY; C1713; C1776; G0480; J0171; J0690; J1100; J1885; J2001; J2060; J2250; J2405; J2704; J2795; J3010; J3370; J3490; J7120

== ENCOUNTER 2017-10-27 05:58 | Day surgery (SDC) | payer MEDICAID ==
[~2017-10-27 05:58] MED LIST changes: +Lidocaine 1%/Sod Bicarbonate in NS 8.4% 1 ML Syringe IDERM PRN; -Lidocaine 1%/Sod Bicarbonate in NS 8.4% 1 ML Syringe PRN
[2017-10-27] MEDS ORDERED: Vancomycin 1 GM SDV ONE (06:44)
[2017-10-27] MEDS ORDERED: oxyCODONE ER 10 MG TAB.ER PO STA (06:44)
[2017-10-27] MEDS ORDERED: ceFAZolin 1 GM Vial ONE ×2 (06:44→06:52)
[2017-10-27] MEDS ORDERED: Bupivacaine 0.25% 30 ML SDV ONE (06:45)
[2017-10-27] MEDS ORDERED: Iodine/Sodium Iodide 2% Tincture 30 ML Bottle ONE (06:45)
--- NOTE | 2017-10-27 06:45 | PCM.PREANE ---
Preanesthetic Assessment - Anesthesia/Transfusion/Family Hx Anesthesia History: Prior Anesthesia Reaction Family History of Anesthesia Reaction: No Transfusion History: Unknown Type of Transfusion Reactions: Reports: Unknown Intubation History: Unknown - Review of Systems General: No Symptoms Pulmonary: No Symptoms Cardiovascular: No Symptoms Gastrointestinal: No Symptoms Neurological: Tingling (right shoulder) - Physical Assessment NPO Status Date: 10/26/17 NPO Status Time: 00:00 Pulse: 72 O2 Sat by Pulse Oximetry: 98 Respiratory Rate: 18 Blood Pressure: 145/82 Temperature: 36.1 C Vital Signs: Last Vital Signs Temp 36.1 C 10/27/17 06:00 Pulse 72 10/27/17 06:00 Resp 18 10/27/17 06:00 BP 145/82 H 10/27/17 06:00 Pulse Ox 98 10/27/17 06:00 Height: 1.65 m Weight: 83.3 kg ASA Class: 2 Mental Status: Alert & Oriented x3 Dentition: Reports: Missing Tooth/Teeth Thyro-Mental Finger Breadths: 3 Mouth Opening Finger Breadths: 3 ROM/Head Extension: Full Lungs: Decreased Breath Sounds, Wheezing (right lower) Cardiovascular: Regular Rate, Regular Rhythm - Imaging/EKG Impressions: EKG done in september on chart Sinus Rhythm - Allergies Allergies/Adverse Reactions: Allergies Allergy/AdvReac Type Severity Reaction Status Date / Time No Known Allergies Allergy Verified 10/27/17 06:29 - Blood Blood Available: No Product(s) Available: None - Acknowledgements Anesthesia Type Planned: General Anesthesia, Regional Block (right intersxcalene block for post-op pain control) Pt an Appropriate Candidate for the Planned Anesthesia: Yes Alternatives and Risks of Anesthesia Discussed w Pt/Guardian: Yes Pt/Guardian Understands and Agrees with Anesthesia Plan: Yes PreAnesthesia Questionnaire HEENT History: Reports: Impaired Vision, Other (See Below) Other HEENT History: glasses Cardiovascular History: Reports: None Respiratory History: Other Respiratory History: emphysema Gastrointestinal History: Reports: None Genitourinary History: Reports: None 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: Reports: 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 Musculoskeletal History: Reports: Other (See Below) Other Musculoskeletal History: ac joint bone spurs, L glenohumeral arthritis, R wrist pain with swelling, L shoulder rotator cuff impingement, bilateral carpal syndrome, knee surgery Neurological History: Reports: None Psychiatric History: Reports: None Endocrine/Metabolic History: Reports: Hypothyroidism Hematologic History: Other Hematologic History: leukocytosis, thrombocytosis Immunologic History: Reports: None Oncologic (Cancer) History: Reports: None Dermatologic History: Reports: None - Infectious Disease History Infectious Disease History: Reports: Chicken Pox, Measles, Mumps - Past Surgical History Other Musculoskeletal Surgeries/Procedures:: knee surgery - SUBSTANCE USE Smoking Status *Q: Current Every Day Smoker (30 years 1.5ppd) Tobacco Use Within Last Twelve Months: Cigarettes Second Hand Smoke Exposure: No Days Per Week of Alcohol Use: 0 Number of Drinks Per Day: 0 Total Drinks Per Week: 0 Recreational Drug Use History: No - HOME MEDS Home Medications: Home Meds Acetaminophen [Tylenol] 650 mg PO Q4H PRN #0 04/17/17 [Rx] Cholecalciferol (Vitamin D3) [Vitamin D3] 5,000 unit PO DAILY 09/05/17 [History] Aspirin [Ecotrin] 325 mg PO BID #84 tab.ec 09/09/17 [Rx] Acetaminophen/oxyCODONE [Percocet 325-5 MG] 1 - 2 tab PO Q6H PRN #60 tablet [Rx] - CURRENT (IN HOUSE) MEDS Current Meds: Current Medications Lactated Ringer's (Ringers, Lactated) 1,000 mls @ 125 mls/hr IV ASDIRECTED [facility] Lidocaine/Sodium Bicarbonate (Buffered Lidocaine 1% In Ns 8.4%) 0.25 ml IDERM ONETIME PRN PRN Reason: Prior to IV Start Sodium Chloride (Saline Flush) 10 ml FLUSH ASDIRECTED PRN PRN Reason: Keep Vein Open
[2017-10-27] MEDS ORDERED: Acetaminophen Soln 650 MG/20.3 ML UD Cup PO ONE (06:46)
[2017-10-27] MEDS ORDERED: Albuterol 0.042% 1.25 MG/3 ML Neb Soln NEB ONE (06:47)
[2017-10-27] MEDS ORDERED: Ondansetron 4 MG/2 ML SDV ONE (06:51)
[2017-10-27] MEDS ORDERED: Midazolam 1 MG/ML 2 ML SDV ONE (06:51)
[2017-10-27] MEDS ORDERED: Propofol 200 MG/20 ML SDV ONE (06:51)
[2017-10-27] MEDS ORDERED: Rocuronium 50 MG/5 ML Vial ONE (06:51)
[2017-10-27] MEDS ORDERED: fentaNYL 100 MCG/2 ML SDV ONE ×4 (06:51→09:11)
[2017-10-27] MEDS ORDERED: Albuterol 0.083% 2.5 MG/3 ML Neb Soln ONE (07:01)
[2017-10-27] MEDS ORDERED: Acetaminophen 325 MG Tab PO SCH (07:05)
[2017-10-27] MEDS ORDERED: Ropivacaine 0.5% 5 MG/ML 30 ML SDV ONE (07:07)
[2017-10-27] MEDS ORDERED: EPINEPHrine 1 MG/ML SDV ONE (07:07)
[2017-10-27] MEDS ORDERED: Pregabalin 25 MG Cap PO ONE (07:24)
[2017-10-27] MEDS ORDERED: Lactated Ringers 1,000 ML ONE (08:17)
[2017-10-27] MEDS ORDERED: Ketorolac 30 MG/ML SDV ONE (09:07)
--- NOTE | 2017-10-27 09:20 | CR ---
Right shoulder: Two views of the right shoulder were obtained utilizing C-arm device. Right shoulder prosthesis is seen. Components appear aligned as seen on this exam. Underlying bony structures are grossly intact. Fluoroscopy time given as 2.0 seconds. Impression: 1. Right shoulder prosthesis. Diagnostic code #2
[2017-10-27] MEDS ORDERED: fentaNYL 100 MCG/2 ML SDV IVPUSH PRN (09:35)
[2017-10-27] MEDS ORDERED: diphenhydrAMINE 50 MG/ML SDV IVPUSH PRN (09:35)
--- NOTE | 2017-10-27 09:37 | PCM.POSTAN ---
POST ANESTHESIA ASSESSMENT - MENTAL STATUS Mental Status: Alert, Oriented - VITAL SIGNS Pulse Rate: 84 SaO2: 97 Resp Rate: 18 Blood Pressure: 125/83 Temperature: 36.6 C - RESPIRATORY Respiratory Status: Respiratory Rate WNL, Airway Patent, O2 Saturation Stable, Supplemental Oxygen - CARDIOVASCULAR CV Status: Pulse Rate WNL, Blood Pressure Stable - GASTROINTESTINAL GI Status: No Symptoms - PAIN Pain Score: 0 - POST OP HYDRATION Hydration Status: Adequate & Stable - OBSERVATIONS Free Text/Narrative:: no anesthesia complications noted
--- NOTE | 2017-10-27 09:41 | PCM.SN ---
- Free Text/Narrative Note: Note: 10/27/2017 0938 131/85 71 96% 15 Surgeon and pt request post-op pain control for right shoulder surgery risk of block failure, facial numbness, site infection, and chronic pain discussed with pt and agreed to proceed. All standard monitors est. EKG, BP, Pulse Ox, 2L O2 and 2ml versed, 1ml fentanyl pre-op dx. right shoulder arthroplasty post-op dx right reverse total shoulder pt for interscalene block placement all standard monitors est. pt ID time out performed IV sedation 2ml versed, 1ml fentanyl, 2L NC O2, sterile prep and drape of right neck and shoulder U/S placed with visualization of brachial plexus from clavicle to cricoid local skin infiltration 22ga. Stimplex A insulated needle visualized at brachial plexus nerve stimulator at .9 Marita Amps stop at .4 Marita Amps with good bicep twitch with 1ml NaCl and lose of twitch neg aspirations every 5ml of 0.5% ropivacaine and 1:200,000 epi total of 30ml injected all done with U/S guidance needle withdrawn no complications noted pt tolerated procedure well block settling in start procedure at 0715 end procedure at 07 116/74 78 98 22
[2017-10-27 13:52] VITALS: BP 131/81
--- NOTE | 2017-11-03 11:03 | PCM.OPNOTE ---
- General Post-Op/Procedure Note Date of Surgery/Procedure: 10/27/17 Operative Procedure(s): revision right reverse total shoulder glenosphere component Pre Op Diagnosis: deep hardware failure right reverse total shoulder Post-Op Diagnosis: Same Anesthesia Technique: General ET Tube, Regional Block Primary Surgeon: Duke Escobedo Anesthesia Provider: Vinicio Polk Tig Welder: Renu Arias Tig Welder: Haydee Bermudez EBL in mLs: 100 Complications: None Condition: Good
--- NOTE | 2017-11-03 11:39 | OR ---
DATE OF OPERATION: 10/27/2017 SURGEON: Duke Escobedo MD OPERATION PERFORMED: Revision right reverse total shoulder Glenosphere component. PREOPERATIVE DIAGNOSIS: Deep hardware failure, right reverse total shoulder. POSTOPERATIVE DIAGNOSIS: Deep hardware failure, right reverse total shoulder. ANESTHESIA: General endotracheal intubation with regional interscalene block. ANESTHESIA PROVIDER: Vinicio Polk CRNA ASSISTANTS: 1. Renu Arias PA-C. 2. Haydee Bermudez LPN. ESTIMATED BLOOD LOSS: 100 mL. COMPLICATIONS: None. CONDITION: Stable. DESCRIPTION OF PROCEDURE: The patient was identified in the preoperative holding area. Proper site was marked and identified by the surgeon. The patient was taken back to the operative theater where, after adequate anesthesia, he was placed supine on a radiolucent table. The right upper extremity was then sterilely prepped and draped in the usual sterile fashion. OR time-out was performed. The patient received 2 g of IV Ancef. At this time, the previous incision was utilized. Blunt dissection was taken down to the previous tag stitches of the FiberWire in the deltopectoral interval. These were then located and were removed, and the deltopectoral interval was again utilized. A retractor was placed out laterally and retracting the conjoined tendon. The loose Glenosphere component was then identified and was removed. At this time, the peripheral reamer was again utilized, and using cautery, made sure to again remove all soft tissue that was there around the glenoid baseplate and around the remaining glenoid. The glenoid baseplate was firmly intact in bone with no signs of liftoff or loosening. At this time, a new 36+ 4 mm Glenosphere component was then opened and then was impacted into place. It was pulled on in numerous ways and showed no signs of being loose with a [place] taper fit. At this time, the patient's shoulder was reduced. It had full range of motion with no signs of loosening or dislocation. At this time, adequate saline was irrigated through the wound. 3 L of pulse lavage irrigation with Ancef were irrigated through the wound along with topical tranexamic acid and vancomycin powder. Again, the deltopectoral interval was tagged. 2-0 Vicryl was used subcutaneously, and Prineo was used for the skin. The patient tolerated the procedure well and was sent to the PACU in stable condition. MMODAL /[id number]
== END 2017-10-27 13:24 | disposition home or self-care (01) ==
LOC: JD.MS 05:58 → UNDOADMIN 05:58 → JD.SDS 05:58 → EDSTATUS 09:15 → JD.SDS 13:24 → UNDODISIN 13:24
PROVIDERS: ATTEND Orthopaedic Surgery
DX: T84.89XA Other specified complication of internal orthopedic prosthetic devices, implants and grafts, initial encounter (principal); Y83.8 Other surgical procedures as the cause of abnormal reaction of the patient, or of later complication, without mention of misadventure at the time of the procedure; E03.9 Hypothyroidism, unspecified; J44.9 Chronic obstructive pulmonary disease, unspecified; Z79.899 Other long term (current) drug therapy; F17.210 Nicotine dependence, cigarettes, uncomplicated; Z79.82 Long term (current) use of aspirin
CPT/HCPCS: 23474; 76000; 94640; A9270; C1776; J0171; J0690; J1885; J2250; J2405; J2795; J3010; J3370; J3490; J7120; 01638; 64415; J2704